=== PATIENT | female | born 1950 ===

== ENCOUNTER 2018-01-27 10:32 | Inpatient (IN) | payer OTHER ==
[2018-01-27 11:32] VITALS: BMI 23.6
[2018-01-27] MEDS ORDERED: oxyCODONE 10 mg ER Tab (oxyCONTIN) PO PRN ×2 (13:57→14:10)
[2018-01-27] MEDS ORDERED: Vitamins A & D Oint UD Foilpak TOP PRN (14:01)
[2018-01-27] MEDS: POLYETHYLENE GLYCOL 3350 17 GM/Dose PACKET PO SCH (16:41)
[2018-01-27] MEDS: Albuterol-Ipratrop 3 mg / 0.5 (3 ml) UD IH SCH ×3 (17:00→23:00)
[2018-01-27] MEDS: Oxycodone/Acetaminophen 5/325 mg Tab PO PRN (21:32)
[2018-01-27] MEDS ORDERED: ROSUVASTATIN CALCIUM PO SCH (22:00)
[2018-01-28] MEDS: Albuterol-Ipratrop 3 mg / 0.5 (3 ml) UD IH SCH ×6 (04:00→23:17)
[2018-01-28] MEDS: Levothyroxine 175 MCG TAB PO SCH (07:47)
[2018-01-28] MEDS: Metoprolol Succinate 50 mg XL Tab PO SCH (08:22)
[2018-01-28] MEDS ORDERED: PrednisoLONE 1% OPTH SUSP OD SCH (09:00)
[2018-01-28] MEDS ORDERED: Levothyroxine 175 MCG TAB PO SCH (09:00)
[2018-01-28] MEDS: Multivitamin With Minerals Tab PO SCH (09:42)
[2018-01-28] MEDS: Pantoprazole 40 mg EC Tab PO SCH (09:42)
[2018-01-28] MEDS: POLYETHYLENE GLYCOL 3350 17 GM/Dose PACKET PO SCH ×3 (09:42→18:25)
[2018-01-28] MEDS: Oxycodone/Acetaminophen 5/325 mg Tab PO PRN ×3 (10:52→21:54)
[2018-01-29] MEDS: Albuterol-Ipratrop 3 mg / 0.5 (3 ml) UD IH SCH ×6 (04:03→23:11)
[2018-01-29] MEDS: Levothyroxine 175 MCG TAB PO SCH (06:12)
--- NOTE | 2018-01-29 08:02 | CP.PCM.HP ---
History of Present Illness - History of Present Illness History of Present Illness: This is a 67 y/o female admitted for rehab after ORIF of left wrist fracture. Post op period was unremarkable except for pain on the surg site. Has a hx of hyperlipidemia HTN and SLE., ostoporosis Present on Admission - Present on Admission Any Indicators Present on Admission: No History of DVT/PE: No History of Uncontrolled Diabetes: No Urinary Catheter: No Decubitus Ulcer Present: No Review of Systems - Musculoskeletal Musculoskeletal: Arthralgias, Muscle Weakness, Stiffness Past Patient History - Past Medical History & Family History Past Medical History?: Yes - Past Social History Smoking Status: Never Smoked - CARDIAC Hx Cardiac Disorders: Yes Hx Hypertension: Yes - PULMONARY Hx Respiratory Disorders: Yes Hx Asthma: Yes - NEUROLOGICAL Hx Neurological Disorder: Yes Hx Migraine: Yes - HEENT Hx HEENT Problems: Yes Hx Cataracts: Yes (Bilateral IOL) - RENAL Hx Chronic Kidney Disease: No - ENDOCRINE/METABOLIC Hx Hypothyroidism: Yes - HEMATOLOGICAL/ONCOLOGICAL Hx Blood Disorders: Yes Hx Anemia: Yes Hx Blood Transfusions: No Other/Comment: Lupus - INTEGUMENTARY Hx Dermatological Problems: No - MUSCULOSKELETAL/RHEUMATOLOGICAL Hx Arthritis: Yes Hx Falls: No - GASTROINTESTINAL Hx Gastrointestinal Disorders: Yes Hx Gastroesophageal Reflux: Yes - GENITOURINARY/GYNECOLOGICAL Hx Genitourinary Disorders: No - PSYCHIATRIC Hx Psychophysiologic Disorder: Yes Hx Anxiety: Yes Hx Substance Use: No - SURGICAL HISTORY Hx Surgeries: Yes Hx Cataract Extraction: Yes (CAROLYN. IOL) Hx Cardiac Catheterization: Yes ("I HAVE BLOCKAGE") Hx Eye Surgery: Yes (LASIK) Hx Hysterectomy: Yes Hx Tonsillectomy: Yes Other/Comment: s/p orif of left distal radius - ANESTHESIA Hx Anesthesia: Yes Hx Anesthesia Reactions: No Hx Malignant Hyperthermia: No Meds Allergies/Adverse Reactions: Allergies Allergy/AdvReac Type Severity Reaction Status Date / Time Sulfa (Sulfonamide Allergy Intermediate RASH Verified 01/27/18 11:38 Antibiotics) Physical Exam - Head Exam Head Exam: NORMAL INSPECTION - Eye Exam Eye Exam: Normal appearance - ENT Exam ENT Exam: Mucous Membranes Moist - Respiratory Exam Respiratory Exam: Clear to Auscultation Bilateral - Cardiovascular Exam Cardiovascular Exam: REGULAR RHYTHM - Extremities Exam Additional comments: slight tenderness on the left wrist Results - Vital Signs Recent Vital Signs: Last Vital Signs Temp 97.5 F L 01/28/18 22:01 Pulse 78 01/28/18 22:01 Resp 20 01/28/18 22:01 BP 148/78 01/28/18 22:01 Pulse Ox 99 01/28/18 22:01 Assessment & Plan (1) Status post open reduction with internal fixation (ORIF) of fracture of ankle Status: Acute (2) Hypertension Status: Acute (3) Hyperlipidemia Status: Acute (4) SLE (systemic lupus erythematosus) Status: Acute - Assessment and Plan (Free Text) Plan: Cont meds Pain meds start PT pain meds
[2018-01-29] MEDS: POLYETHYLENE GLYCOL 3350 17 GM/Dose PACKET PO SCH ×3 (08:48→16:50)
[2018-01-29] MEDS: PrednisoLONE 1% OPTH SUSP OU SCH (08:49)
[2018-01-29] MEDS: Pantoprazole 40 mg EC Tab PO SCH (08:49)
[2018-01-29] MEDS: Metoprolol Succinate 50 mg XL Tab PO SCH (08:49)
[2018-01-29] MEDS: Multivitamin With Minerals Tab PO SCH (08:49)
[2018-01-29] MEDS: Oxycodone/Acetaminophen 5/325 mg Tab PO PRN ×2 (13:45→22:35)
[2018-01-30] MEDS: Albuterol-Ipratrop 3 mg / 0.5 (3 ml) UD IH SCH ×5 (04:06→19:07)
[2018-01-30] MEDS: Oxycodone/Acetaminophen 5/325 mg Tab PO PRN ×2 (05:08→21:58)
[2018-01-30] MEDS: Levothyroxine 175 MCG TAB PO SCH (05:40)
[2018-01-30] MEDS: POLYETHYLENE GLYCOL 3350 17 GM/Dose PACKET PO SCH ×3 (08:38→16:39)
[2018-01-30] MEDS: PrednisoLONE 1% OPTH SUSP OU SCH (08:38)
[2018-01-30] MEDS: Multivitamin With Minerals Tab PO SCH (08:38)
[2018-01-30] MEDS: Metoprolol Succinate 50 mg XL Tab PO SCH (08:38)
[2018-01-30] MEDS: Pantoprazole 40 mg EC Tab PO SCH (08:40)
--- NOTE | 2018-01-30 15:58 | CP.PCM.PN ---
<Emmanuel Maldonado - Last Filed: 01/30/18 15:56> Subjective - Date & Time of Evaluation Date of Evaluation: 01/30/18 Time of Evaluation: 09:00 - Subjective Subjective: 67 y/o F reports feeling well. Pt afebrile with no acute events overnight. Pt tolerating PO and tolerating physical therapy. Objective - Vital Signs/Intake and Output Vital Signs (last 24 hours): Temp Pulse Resp BP Pulse Ox 97.9 F 70 20 140/66 99 01/30/18 07:44 01/30/18 08:38 01/30/18 07:44 01/30/18 08:38 01/30/18 07:44 - Medications Medications: Current Medications Acetaminophen (Tylenol 325mg Tab) 650 mg PO Q6 PRN PRN Reason: Pain, Mild (1-3) Last Admin: 01/28/18 08:20 Dose: 650 mg Albuterol/Ipratropium (Duoneb 3 Mg/0.5 Mg (3 Ml) Ud) 3 ml IH RQ4 [facility] Last Admin: 01/30/18 15:23 Dose: Not Given Aspirin (Ecotrin) 81 mg PO DAILY [facility] Last Admin: 01/30/18 08:38 Dose: 81 mg Atorvastatin Calcium (Lipitor) 20 mg PO HS [facility] Last Admin: 01/29/18 21:44 Dose: 20 mg Levothyroxine Sodium (Synthroid) 175 mcg PO DAILY@0630 [facility] Last Admin: 01/30/18 05:40 Dose: 175 mcg Metoprolol Succinate (Toprol Xl) 50 mg PO DAILY [facility] Last Admin: 01/30/18 08:38 Dose: 50 mg Multivitamins/Minerals (Therapeutic-M Tab) 1 tab PO DAILY [facility] Last Admin: 01/30/18 08:38 Dose: 1 tab Pantoprazole Sodium (Protonix Ec Tab) 40 mg PO DAILY [facility] Last Admin: 01/30/18 08:40 Dose: 40 mg Polyethylene Glycol (Miralax) 17 gm PO TID [facility] Last Admin: 01/30/18 14:00 Dose: 17 gm Prednisolone Acetate (Pred Forte 1% Opht Susp) 1 drop OU DAILY [facility] Last Admin: 01/30/18 08:38 Dose: 1 drop Prednisone (Prednisone Tab) 5 mg PO DAILY [facility] Last Admin: 01/30/18 08:38 Dose: 5 mg Sennosides (Senokot Tab) 17.2 mg PO HS PRN PRN Reason: Constipation Vitamin A (Vitamin A & D Oint Ud Foilpak) 1 ea TOP Q4 PRN PRN Reason: Dry skin - Constitutional Appears: No Acute Distress - Head Exam Head Exam: ATRAUMATIC, NORMAL INSPECTION - Eye Exam Eye Exam: EOMI - Neck Exam Neck Exam: Full ROM - Respiratory Exam Respiratory Exam: NORMAL BREATHING PATTERN. absent: Rhonchi, Wheezes - Cardiovascular Exam Cardiovascular Exam: +S1, +S2 - GI/Abdominal Exam GI & Abdominal Exam: Soft. absent: Distended, Guarding, Tenderness - Neurological Exam Neurological Exam: Alert, Awake Assessment and Plan - Assessment and Plan (Free Text) Assessment: 67 y/o F with a past medical history of hypertension and asthma admitted to TCU for rehabilitation S/P Left distak radius ORIF. --Stable, recovering well --Continue with management as ordered --Continue with physical therapy. <Jos Msos - Last Filed: 02/05/18 06:12> Objective - Vital Signs/Intake and Output Vital Signs (last 24 hours): Temp Pulse Resp BP Pulse Ox 97.5 F L 67 20 158/76 H 100 02/04/18 19:52 02/04/18 19:52 02/04/18 19:52 02/04/18 19:52 02/04/18 19:52 - Medications Medications: Current Medications Acetaminophen (Tylenol 325mg Tab) 650 mg PO Q6 PRN PRN Reason: Pain, Mild (1-3) Last Admin: 02/03/18 15:29 Dose: 650 mg Aspirin (Ecotrin) 81 mg PO DAILY [facility] Last Admin: 02/04/18 09:17 Dose: 81 mg Atorvastatin Calcium (Lipitor) 20 mg PO HS [facility] Last Admin: 02/04/18 21:34 Dose: 20 mg Desoximetasone (Topicort 0.25%) 1 ea TOP BID PRN PRN Reason: Itching / Pruritus Last Admin: 02/03/18 13:49 Dose: 1 u Diphenhydramine HCl (Benadryl) 25 mg PO BID PRN PRN Reason: Itching / Pruritus Last Admin: 02/04/18 18:39 Dose: 25 mg Levothyroxine Sodium (Synthroid) 175 mcg PO DAILY@0630 [facility] Last Admin: 02/04/18 06:42 Dose: 175 mcg Metoprolol Succinate (Toprol Xl) 50 mg PO DAILY [facility] Last Admin: 02/04/18 09:16 Dose: 50 mg Multivitamins/Minerals (Therapeutic-M Tab) 1 tab PO DAILY [facility] Last Admin: 02/04/18 09:18 Dose: 1 tab Ondansetron HCl (Zofran Odt) 4 mg PO Q8H PRN PRN Reason: Nausea/Vomiting Last Admin: 02/04/18 17:23 Dose: 4 mg Oxycodone HCl (Oxycontin Extended Release Tab) 10 mg PO Q12 [facility] Last Admin: 02/04/18 20:31 Dose: 10 mg Oxycodone/Acetaminophen (Percocet 5/325 Mg Tab) 1 tab PO Q4 PRN PRN Reason: Pain, moderate (4-7) Stop: 02/07/18 03:05 Last Admin: 02/05/18 03:47 Dose: 1 tab Oxycodone/Acetaminophen (Percocet 5/325 Mg Tab) 2 tab PO HS [facility] Stop: 02/07/18 11:31 Last Admin: 02/04/18 21:34 Dose: 2 tab Pantoprazole Sodium (Protonix Ec Tab) 40 mg PO DAILY [facility] Last Admin: 02/04/18 09:15 Dose: 40 mg Polyethylene Glycol (Miralax) 17 gm PO TID [facility] Last Admin: 02/04/18 16:08 Dose: 17 gm Prednisolone Acetate (Pred Forte 1% Opht Susp) 1 drop OU DAILY [facility] Last Admin: 02/04/18 09:15 Dose: 1 drop Prednisone (Prednisone Tab) 5 mg PO DAILY [facility] Last Admin: 02/04/18 09:18 Dose: 5 mg Sennosides (Senokot Tab) 17.2 mg PO HS PRN PRN Reason: Constipation Vitamin A (Vitamin A & D Oint Ud Foilpak) 1 ea TOP Q4 PRN PRN Reason: Dry skin Last Admin: 01/31/18 08:17 Dose: 1 ea Assessment and Plan (1) Status post open reduction with internal fixation (ORIF) of fracture of ankle Status: Acute (2) Hypertension Status: Acute (3) Hyperlipidemia Status: Acute (4) SLE (systemic lupus erythematosus) Status: Acute - Assessment and Plan (Free Text) Plan: I was present during evaluation and discussed with Dr Maldonado re plans of care and mgt. Jos Moss M.D.
[2018-01-31] MEDS: Albuterol-Ipratrop 3 mg / 0.5 (3 ml) UD IH SCH ×6 (05:26→19:41)
[2018-01-31] MEDS: Levothyroxine 175 MCG TAB PO SCH (06:38)
[2018-01-31] MEDS: Multivitamin With Minerals Tab PO SCH (08:15)
[2018-01-31] MEDS: Metoprolol Succinate 50 mg XL Tab PO SCH (08:16)
[2018-01-31] MEDS: PrednisoLONE 1% OPTH SUSP OU SCH (08:17)
[2018-01-31] MEDS: POLYETHYLENE GLYCOL 3350 17 GM/Dose PACKET PO SCH ×3 (08:18→17:18)
[2018-01-31] MEDS: oxyCODONE 10 mg ER Tab (oxyCONTIN) PO SCH ×2 (08:23→21:46)
[2018-01-31] MEDS: Pantoprazole 40 mg EC Tab PO SCH (08:26)
[2018-01-31 10:24] VITALS: RESP 20
[2018-02-01] MEDS: Albuterol-Ipratrop 3 mg / 0.5 (3 ml) UD IH SCH ×7 (03:50→23:24)
[2018-02-01] MEDS: Levothyroxine 175 MCG TAB PO SCH (06:53)
[2018-02-01] MEDS: oxyCODONE 10 mg ER Tab (oxyCONTIN) PO SCH ×2 (09:00→21:42)
[2018-02-01] MEDS: POLYETHYLENE GLYCOL 3350 17 GM/Dose PACKET PO SCH ×3 (09:03→16:26)
[2018-02-01] MEDS: PrednisoLONE 1% OPTH SUSP OU SCH (09:03)
[2018-02-01] MEDS: Multivitamin With Minerals Tab PO SCH (09:04)
[2018-02-01] MEDS: Metoprolol Succinate 50 mg XL Tab PO SCH (09:04)
[2018-02-01] MEDS: Pantoprazole 40 mg EC Tab PO SCH (09:07)
[2018-02-01] MEDS: Oxycodone/Acetaminophen 5/325 mg Tab PO PRN ×3 (12:26→23:41)
[2018-02-01] MEDS: Desoximetasone 0.25% Cream(15 gm) TOP PRN (21:41)
[2018-02-02] MEDS: Albuterol-Ipratrop 3 mg / 0.5 (3 ml) UD IH SCH ×6 (04:32→23:24)
[2018-02-02] MEDS: Levothyroxine 175 MCG TAB PO SCH (06:39)
[2018-02-02] MEDS: Oxycodone/Acetaminophen 5/325 mg Tab PO PRN (07:45)
[2018-02-02] MEDS: Metoprolol Succinate 50 mg XL Tab PO SCH (08:16)
[2018-02-02] MEDS: Multivitamin With Minerals Tab PO SCH (08:16)
[2018-02-02] MEDS: POLYETHYLENE GLYCOL 3350 17 GM/Dose PACKET PO SCH ×3 (08:16→16:45)
[2018-02-02] MEDS: PrednisoLONE 1% OPTH SUSP OU SCH (08:17)
[2018-02-02] MEDS: oxyCODONE 10 mg ER Tab (oxyCONTIN) PO SCH ×2 (08:19→21:35)
[2018-02-02] MEDS: Pantoprazole 40 mg EC Tab PO SCH (08:19)
[2018-02-02] MEDS: Desoximetasone 0.25% Cream(15 gm) TOP PRN (16:45)
[2018-02-03] MEDS: Albuterol-Ipratrop 3 mg / 0.5 (3 ml) UD IH SCH ×4 (04:54→15:10)
[2018-02-03] MEDS: Levothyroxine 175 MCG TAB PO SCH (06:28)
[2018-02-03] MEDS: oxyCODONE 10 mg ER Tab (oxyCONTIN) PO SCH ×2 (08:55→22:03)
[2018-02-03] MEDS: PrednisoLONE 1% OPTH SUSP OU SCH (08:56)
[2018-02-03] MEDS: POLYETHYLENE GLYCOL 3350 17 GM/Dose PACKET PO SCH ×3 (08:56→17:15)
[2018-02-03] MEDS: Multivitamin With Minerals Tab PO SCH (08:56)
[2018-02-03] MEDS: Metoprolol Succinate 50 mg XL Tab PO SCH (08:57)
[2018-02-03] MEDS: Pantoprazole 40 mg EC Tab PO SCH (09:00)
[2018-02-03] MEDS: Oxycodone/Acetaminophen 5/325 mg Tab PO PRN ×2 (13:48→18:57)
[2018-02-03] MEDS: Desoximetasone 0.25% Cream(15 gm) TOP PRN (13:49)
[2018-02-03] MEDS ORDERED: Oxycodone/Acetaminophen 5/325 mg Tab PO SCH (22:00)
[2018-02-04] MEDS: Oxycodone/Acetaminophen 5/325 mg Tab PO PRN ×2 (03:12→16:08)
[2018-02-04] MEDS: Levothyroxine 175 MCG TAB PO SCH (06:42)
[2018-02-04 08:35] VITALS: O2SAT 100
[2018-02-04] MEDS: oxyCODONE 10 mg ER Tab (oxyCONTIN) PO SCH ×2 (09:13→20:31)
[2018-02-04] MEDS: PrednisoLONE 1% OPTH SUSP OU SCH (09:15)
[2018-02-04] MEDS: Pantoprazole 40 mg EC Tab PO SCH (09:15)
[2018-02-04] MEDS: POLYETHYLENE GLYCOL 3350 17 GM/Dose PACKET PO SCH ×3 (09:16→16:08)
[2018-02-04] MEDS: Metoprolol Succinate 50 mg XL Tab PO SCH (09:16)
[2018-02-04] MEDS: Multivitamin With Minerals Tab PO SCH (09:18)
[2018-02-04] MEDS ORDERED: Oxycodone/Acetaminophen 5/325 mg Tab PO SCH (11:30)
[2018-02-05] MEDS: Oxycodone/Acetaminophen 5/325 mg Tab PO PRN ×3 (03:47→13:28)
[2018-02-05] MEDS: Levothyroxine 175 MCG TAB PO SCH (06:13)
--- NOTE | 2018-02-05 06:13 | CP.PCM.PN ---
Subjective - Date & Time of Evaluation Date of Evaluation: 01/29/18 Time of Evaluation: 10:00 - Subjective Subjective: Patient continues to have pain on the op site Has poor sleep Doign well with PT. Objective - Vital Signs/Intake and Output Vital Signs (last 24 hours): Temp Pulse Resp BP Pulse Ox 97.5 F L 67 20 158/76 H 100 02/04/18 19:52 02/04/18 19:52 02/04/18 19:52 02/04/18 19:52 02/04/18 19:52 - Medications Medications: Current Medications Acetaminophen (Tylenol 325mg Tab) 650 mg PO Q6 PRN PRN Reason: Pain, Mild (1-3) Last Admin: 02/03/18 15:29 Dose: 650 mg Aspirin (Ecotrin) 81 mg PO DAILY [facility] Last Admin: 02/04/18 09:17 Dose: 81 mg Atorvastatin Calcium (Lipitor) 20 mg PO HS [facility] Last Admin: 02/04/18 21:34 Dose: 20 mg Desoximetasone (Topicort 0.25%) 1 ea TOP BID PRN PRN Reason: Itching / Pruritus Last Admin: 02/03/18 13:49 Dose: 1 u Diphenhydramine HCl (Benadryl) 25 mg PO BID PRN PRN Reason: Itching / Pruritus Last Admin: 02/04/18 18:39 Dose: 25 mg Levothyroxine Sodium (Synthroid) 175 mcg PO DAILY@0630 [facility] Last Admin: 02/04/18 06:42 Dose: 175 mcg Metoprolol Succinate (Toprol Xl) 50 mg PO DAILY [facility] Last Admin: 02/04/18 09:16 Dose: 50 mg Multivitamins/Minerals (Therapeutic-M Tab) 1 tab PO DAILY [facility] Last Admin: 02/04/18 09:18 Dose: 1 tab Ondansetron HCl (Zofran Odt) 4 mg PO Q8H PRN PRN Reason: Nausea/Vomiting Last Admin: 02/04/18 17:23 Dose: 4 mg Oxycodone HCl (Oxycontin Extended Release Tab) 10 mg PO Q12 [facility] Last Admin: 02/04/18 20:31 Dose: 10 mg Oxycodone/Acetaminophen (Percocet 5/325 Mg Tab) 1 tab PO Q4 PRN PRN Reason: Pain, moderate (4-7) Stop: 02/07/18 03:05 Last Admin: 02/05/18 03:47 Dose: 1 tab Oxycodone/Acetaminophen (Percocet 5/325 Mg Tab) 2 tab PO HS [facility] Stop: 02/07/18 11:31 Last Admin: 02/04/18 21:34 Dose: 2 tab Pantoprazole Sodium (Protonix Ec Tab) 40 mg PO DAILY [facility] Last Admin: 02/04/18 09:15 Dose: 40 mg Polyethylene Glycol (Miralax) 17 gm PO TID [facility] Last Admin: 02/04/18 16:08 Dose: 17 gm Prednisolone Acetate (Pred Forte 1% Opht Susp) 1 drop OU DAILY [facility] Last Admin: 02/04/18 09:15 Dose: 1 drop Prednisone (Prednisone Tab) 5 mg PO DAILY [facility] Last Admin: 02/04/18 09:18 Dose: 5 mg Sennosides (Senokot Tab) 17.2 mg PO HS PRN PRN Reason: Constipation Vitamin A (Vitamin A & D Oint Ud Foilpak) 1 ea TOP Q4 PRN PRN Reason: Dry skin Last Admin: 01/31/18 08:17 Dose: 1 ea - Head Exam Head Exam: NORMAL INSPECTION - Eye Exam Eye Exam: Normal appearance - GI/Abdominal Exam GI & Abdominal Exam: Normal Bowel Sounds - Neurological Exam Neurological Exam: Awake, Oriented x3 Assessment and Plan (1) Status post open reduction with internal fixation (ORIF) of fracture of ankle Status: Acute (2) Hypertension Status: Acute (3) Hyperlipidemia Status: Acute (4) SLE (systemic lupus erythematosus) Status: Acute - Assessment and Plan (Free Text) Plan: Cont meds Cont tx Cont PT
--- NOTE | 2018-02-05 06:14 | CP.PCM.PN ---
Subjective - Date & Time of Evaluation Date of Evaluation: 01/31/18 Time of Evaluation: 11:00 - Subjective Subjective: Patient is doing well with PT Has minimal pain Has no constipation. Objective - Vital Signs/Intake and Output Vital Signs (last 24 hours): Temp Pulse Resp BP Pulse Ox 97.5 F L 67 20 158/76 H 100 02/04/18 19:52 02/04/18 19:52 02/04/18 19:52 02/04/18 19:52 02/04/18 19:52 - Medications Medications: Current Medications Acetaminophen (Tylenol 325mg Tab) 650 mg PO Q6 PRN PRN Reason: Pain, Mild (1-3) Last Admin: 02/03/18 15:29 Dose: 650 mg Aspirin (Ecotrin) 81 mg PO DAILY [facility] Last Admin: 02/04/18 09:17 Dose: 81 mg Atorvastatin Calcium (Lipitor) 20 mg PO HS [facility] Last Admin: 02/04/18 21:34 Dose: 20 mg Desoximetasone (Topicort 0.25%) 1 ea TOP BID PRN PRN Reason: Itching / Pruritus Last Admin: 02/03/18 13:49 Dose: 1 u Diphenhydramine HCl (Benadryl) 25 mg PO BID PRN PRN Reason: Itching / Pruritus Last Admin: 02/04/18 18:39 Dose: 25 mg Levothyroxine Sodium (Synthroid) 175 mcg PO DAILY@0630 [facility] Last Admin: 02/04/18 06:42 Dose: 175 mcg Metoprolol Succinate (Toprol Xl) 50 mg PO DAILY [facility] Last Admin: 02/04/18 09:16 Dose: 50 mg Multivitamins/Minerals (Therapeutic-M Tab) 1 tab PO DAILY [facility] Last Admin: 02/04/18 09:18 Dose: 1 tab Ondansetron HCl (Zofran Odt) 4 mg PO Q8H PRN PRN Reason: Nausea/Vomiting Last Admin: 02/04/18 17:23 Dose: 4 mg Oxycodone HCl (Oxycontin Extended Release Tab) 10 mg PO Q12 [facility] Last Admin: 02/04/18 20:31 Dose: 10 mg Oxycodone/Acetaminophen (Percocet 5/325 Mg Tab) 1 tab PO Q4 PRN PRN Reason: Pain, moderate (4-7) Stop: 02/07/18 03:05 Last Admin: 02/05/18 03:47 Dose: 1 tab Oxycodone/Acetaminophen (Percocet 5/325 Mg Tab) 2 tab PO HS [facility] Stop: 02/07/18 11:31 Last Admin: 02/04/18 21:34 Dose: 2 tab Pantoprazole Sodium (Protonix Ec Tab) 40 mg PO DAILY [facility] Last Admin: 02/04/18 09:15 Dose: 40 mg Polyethylene Glycol (Miralax) 17 gm PO TID [facility] Last Admin: 02/04/18 16:08 Dose: 17 gm Prednisolone Acetate (Pred Forte 1% Opht Susp) 1 drop OU DAILY [facility] Last Admin: 02/04/18 09:15 Dose: 1 drop Prednisone (Prednisone Tab) 5 mg PO DAILY [facility] Last Admin: 02/04/18 09:18 Dose: 5 mg Sennosides (Senokot Tab) 17.2 mg PO HS PRN PRN Reason: Constipation Vitamin A (Vitamin A & D Oint Ud Foilpak) 1 ea TOP Q4 PRN PRN Reason: Dry skin Last Admin: 01/31/18 08:17 Dose: 1 ea Assessment and Plan (1) Status post open reduction with internal fixation (ORIF) of fracture of ankle Status: Acute (2) Hypertension Status: Acute (3) Hyperlipidemia Status: Acute (4) SLE (systemic lupus erythematosus) Status: Acute
--- NOTE | 2018-02-05 06:15 | CP.PCM.PN ---
Subjective - Date & Time of Evaluation Date of Evaluation: 02/01/18 Time of Evaluation: 10:00 - Subjective Subjective: Patient is doing well with PT Has minimal pain On pain meds. Objective - Vital Signs/Intake and Output Vital Signs (last 24 hours): Temp Pulse Resp BP Pulse Ox 97.5 F L 67 20 158/76 H 100 02/04/18 19:52 02/04/18 19:52 02/04/18 19:52 02/04/18 19:52 02/04/18 19:52 - Medications Medications: Current Medications Acetaminophen (Tylenol 325mg Tab) 650 mg PO Q6 PRN PRN Reason: Pain, Mild (1-3) Last Admin: 02/03/18 15:29 Dose: 650 mg Aspirin (Ecotrin) 81 mg PO DAILY [facility] Last Admin: 02/04/18 09:17 Dose: 81 mg Atorvastatin Calcium (Lipitor) 20 mg PO HS [facility] Last Admin: 02/04/18 21:34 Dose: 20 mg Desoximetasone (Topicort 0.25%) 1 ea TOP BID PRN PRN Reason: Itching / Pruritus Last Admin: 02/03/18 13:49 Dose: 1 u Diphenhydramine HCl (Benadryl) 25 mg PO BID PRN PRN Reason: Itching / Pruritus Last Admin: 02/04/18 18:39 Dose: 25 mg Levothyroxine Sodium (Synthroid) 175 mcg PO DAILY@0630 [facility] Last Admin: 02/04/18 06:42 Dose: 175 mcg Metoprolol Succinate (Toprol Xl) 50 mg PO DAILY [facility] Last Admin: 02/04/18 09:16 Dose: 50 mg Multivitamins/Minerals (Therapeutic-M Tab) 1 tab PO DAILY [facility] Last Admin: 02/04/18 09:18 Dose: 1 tab Ondansetron HCl (Zofran Odt) 4 mg PO Q8H PRN PRN Reason: Nausea/Vomiting Last Admin: 02/04/18 17:23 Dose: 4 mg Oxycodone HCl (Oxycontin Extended Release Tab) 10 mg PO Q12 [facility] Last Admin: 02/04/18 20:31 Dose: 10 mg Oxycodone/Acetaminophen (Percocet 5/325 Mg Tab) 1 tab PO Q4 PRN PRN Reason: Pain, moderate (4-7) Stop: 02/07/18 03:05 Last Admin: 02/05/18 03:47 Dose: 1 tab Oxycodone/Acetaminophen (Percocet 5/325 Mg Tab) 2 tab PO HS [facility] Stop: 02/07/18 11:31 Last Admin: 02/04/18 21:34 Dose: 2 tab Pantoprazole Sodium (Protonix Ec Tab) 40 mg PO DAILY [facility] Last Admin: 02/04/18 09:15 Dose: 40 mg Polyethylene Glycol (Miralax) 17 gm PO TID [facility] Last Admin: 02/04/18 16:08 Dose: 17 gm Prednisolone Acetate (Pred Forte 1% Opht Susp) 1 drop OU DAILY [facility] Last Admin: 02/04/18 09:15 Dose: 1 drop Prednisone (Prednisone Tab) 5 mg PO DAILY [facility] Last Admin: 02/04/18 09:18 Dose: 5 mg Sennosides (Senokot Tab) 17.2 mg PO HS PRN PRN Reason: Constipation Vitamin A (Vitamin A & D Oint Ud Foilpak) 1 ea TOP Q4 PRN PRN Reason: Dry skin Last Admin: 01/31/18 08:17 Dose: 1 ea Assessment and Plan (1) Status post open reduction with internal fixation (ORIF) of fracture of ankle Status: Acute (2) Hypertension Status: Acute (3) Hyperlipidemia Status: Acute (4) SLE (systemic lupus erythematosus) Status: Acute
--- NOTE | 2018-02-05 06:15 | CP.PCM.PN ---
Subjective - Date & Time of Evaluation Date of Evaluation: 02/02/18 Time of Evaluation: 11:00 - Subjective Subjective: Patient remains stable Has no chest pain or SOB Objective - Vital Signs/Intake and Output Vital Signs (last 24 hours): Temp Pulse Resp BP Pulse Ox 97.5 F L 67 20 158/76 H 100 02/04/18 19:52 02/04/18 19:52 02/04/18 19:52 02/04/18 19:52 02/04/18 19:52 - Medications Medications: Current Medications Acetaminophen (Tylenol 325mg Tab) 650 mg PO Q6 PRN PRN Reason: Pain, Mild (1-3) Last Admin: 02/03/18 15:29 Dose: 650 mg Aspirin (Ecotrin) 81 mg PO DAILY [facility] Last Admin: 02/04/18 09:17 Dose: 81 mg Atorvastatin Calcium (Lipitor) 20 mg PO HS [facility] Last Admin: 02/04/18 21:34 Dose: 20 mg Desoximetasone (Topicort 0.25%) 1 ea TOP BID PRN PRN Reason: Itching / Pruritus Last Admin: 02/03/18 13:49 Dose: 1 u Diphenhydramine HCl (Benadryl) 25 mg PO BID PRN PRN Reason: Itching / Pruritus Last Admin: 02/04/18 18:39 Dose: 25 mg Levothyroxine Sodium (Synthroid) 175 mcg PO DAILY@0630 [facility] Last Admin: 02/04/18 06:42 Dose: 175 mcg Metoprolol Succinate (Toprol Xl) 50 mg PO DAILY [facility] Last Admin: 02/04/18 09:16 Dose: 50 mg Multivitamins/Minerals (Therapeutic-M Tab) 1 tab PO DAILY [facility] Last Admin: 02/04/18 09:18 Dose: 1 tab Ondansetron HCl (Zofran Odt) 4 mg PO Q8H PRN PRN Reason: Nausea/Vomiting Last Admin: 02/04/18 17:23 Dose: 4 mg Oxycodone HCl (Oxycontin Extended Release Tab) 10 mg PO Q12 [facility] Last Admin: 02/04/18 20:31 Dose: 10 mg Oxycodone/Acetaminophen (Percocet 5/325 Mg Tab) 1 tab PO Q4 PRN PRN Reason: Pain, moderate (4-7) Stop: 02/07/18 03:05 Last Admin: 02/05/18 03:47 Dose: 1 tab Oxycodone/Acetaminophen (Percocet 5/325 Mg Tab) 2 tab PO HS [facility] Stop: 02/07/18 11:31 Last Admin: 02/04/18 21:34 Dose: 2 tab Pantoprazole Sodium (Protonix Ec Tab) 40 mg PO DAILY [facility] Last Admin: 02/04/18 09:15 Dose: 40 mg Polyethylene Glycol (Miralax) 17 gm PO TID [facility] Last Admin: 02/04/18 16:08 Dose: 17 gm Prednisolone Acetate (Pred Forte 1% Opht Susp) 1 drop OU DAILY [facility] Last Admin: 02/04/18 09:15 Dose: 1 drop Prednisone (Prednisone Tab) 5 mg PO DAILY [facility] Last Admin: 02/04/18 09:18 Dose: 5 mg Sennosides (Senokot Tab) 17.2 mg PO HS PRN PRN Reason: Constipation Vitamin A (Vitamin A & D Oint Ud Foilpak) 1 ea TOP Q4 PRN PRN Reason: Dry skin Last Admin: 01/31/18 08:17 Dose: 1 ea Assessment and Plan (1) Status post open reduction with internal fixation (ORIF) of fracture of ankle Status: Acute (2) Hypertension Status: Acute (3) Hyperlipidemia Status: Acute (4) SLE (systemic lupus erythematosus) Status: Acute
--- NOTE | 2018-02-05 06:16 | CP.PCM.PN ---
Subjective - Date & Time of Evaluation Date of Evaluation: 02/03/18 Time of Evaluation: 11:00 - Subjective Subjective: Patient has minimal pain on the op site Doing welll with PT BP has been stable Sleeps better. Objective - Vital Signs/Intake and Output Vital Signs (last 24 hours): Temp Pulse Resp BP Pulse Ox 97.5 F L 67 20 158/76 H 100 02/04/18 19:52 02/04/18 19:52 02/04/18 19:52 02/04/18 19:52 02/04/18 19:52 - Medications Medications: Current Medications Acetaminophen (Tylenol 325mg Tab) 650 mg PO Q6 PRN PRN Reason: Pain, Mild (1-3) Last Admin: 02/03/18 15:29 Dose: 650 mg Aspirin (Ecotrin) 81 mg PO DAILY [facility] Last Admin: 02/04/18 09:17 Dose: 81 mg Atorvastatin Calcium (Lipitor) 20 mg PO HS [facility] Last Admin: 02/04/18 21:34 Dose: 20 mg Desoximetasone (Topicort 0.25%) 1 ea TOP BID PRN PRN Reason: Itching / Pruritus Last Admin: 02/03/18 13:49 Dose: 1 u Diphenhydramine HCl (Benadryl) 25 mg PO BID PRN PRN Reason: Itching / Pruritus Last Admin: 02/04/18 18:39 Dose: 25 mg Levothyroxine Sodium (Synthroid) 175 mcg PO DAILY@0630 [facility] Last Admin: 02/05/18 06:13 Dose: 175 mcg Metoprolol Succinate (Toprol Xl) 50 mg PO DAILY [facility] Last Admin: 02/04/18 09:16 Dose: 50 mg Multivitamins/Minerals (Therapeutic-M Tab) 1 tab PO DAILY [facility] Last Admin: 02/04/18 09:18 Dose: 1 tab Ondansetron HCl (Zofran Odt) 4 mg PO Q8H PRN PRN Reason: Nausea/Vomiting Last Admin: 02/04/18 17:23 Dose: 4 mg Oxycodone HCl (Oxycontin Extended Release Tab) 10 mg PO Q12 [facility] Last Admin: 02/04/18 20:31 Dose: 10 mg Oxycodone/Acetaminophen (Percocet 5/325 Mg Tab) 1 tab PO Q4 PRN PRN Reason: Pain, moderate (4-7) Stop: 02/07/18 03:05 Last Admin: 02/05/18 03:47 Dose: 1 tab Oxycodone/Acetaminophen (Percocet 5/325 Mg Tab) 2 tab PO HS [facility] Stop: 02/07/18 11:31 Last Admin: 02/04/18 21:34 Dose: 2 tab Pantoprazole Sodium (Protonix Ec Tab) 40 mg PO DAILY [facility] Last Admin: 02/04/18 09:15 Dose: 40 mg Polyethylene Glycol (Miralax) 17 gm PO TID [facility] Last Admin: 02/04/18 16:08 Dose: 17 gm Prednisolone Acetate (Pred Forte 1% Opht Susp) 1 drop OU DAILY [facility] Last Admin: 02/04/18 09:15 Dose: 1 drop Prednisone (Prednisone Tab) 5 mg PO DAILY [facility] Last Admin: 02/04/18 09:18 Dose: 5 mg Sennosides (Senokot Tab) 17.2 mg PO HS PRN PRN Reason: Constipation Vitamin A (Vitamin A & D Oint Ud Foilpak) 1 ea TOP Q4 PRN PRN Reason: Dry skin Last Admin: 01/31/18 08:17 Dose: 1 ea Assessment and Plan (1) Status post open reduction with internal fixation (ORIF) of fracture of ankle Status: Acute (2) Hypertension Status: Acute (3) Hyperlipidemia Status: Acute (4) SLE (systemic lupus erythematosus) Status: Acute
[2018-02-05 08:05] VITALS: PULSE 72; TEMP 98.2
[2018-02-05] MEDS: oxyCODONE 10 mg ER Tab (oxyCONTIN) PO SCH (08:28)
[2018-02-05] MEDS: PrednisoLONE 1% OPTH SUSP OU SCH (08:28)
[2018-02-05] MEDS: Metoprolol Succinate 50 mg XL Tab PO SCH (08:28)
[2018-02-05] MEDS: POLYETHYLENE GLYCOL 3350 17 GM/Dose PACKET PO SCH ×2 (08:28→12:43)
[2018-02-05] MEDS: Multivitamin With Minerals Tab PO SCH (08:29)
[2018-02-05 08:31] VITALS: BP 146/79
[2018-02-05] MEDS: Pantoprazole 40 mg EC Tab PO SCH (08:31)
== END 2018-02-05 14:15 | disposition home or self-care (01) | DRG 561 ==
LOC: H.TCU 12:35
PROVIDERS: ADMIT Family Medicine; ATTEND Family Medicine
PROC: F07Z9FZ Gait Training/Functional Ambulation Treatment using Assistive, Adaptive, Supportive or Protective Equipment (ICD-10-PCS; principal; 2018-01-27)
PROC: F08Z4FZ Home Management Treatment using Assistive, Adaptive, Supportive or Protective Equipment (ICD-10-PCS; 2018-01-27)
PROC: F07K6FZ Therapeutic Exercise Treatment of Musculoskeletal System - Upper Back / Upper Extremity using Assistive, Adaptive, Supportive or Protective Equipment (ICD-10-PCS; 2018-01-27)
PROC: F08Z2FZ Grooming/Personal Hygiene Treatment using Assistive, Adaptive, Supportive or Protective Equipment (ICD-10-PCS; 2018-01-28)
DX: S52.592D Other fractures of lower end of left radius, subsequent encounter for closed fracture with routine healing (principal); Z98.890 Other specified postprocedural states; G89.18 Other acute postprocedural pain; M32.9 Systemic lupus erythematosus, unspecified; E03.9 Hypothyroidism, unspecified; I10 Essential (primary) hypertension; E78.5 Hyperlipidemia, unspecified; M19.90 Unspecified osteoarthritis, unspecified site; K21.9 Gastro-esophageal reflux disease without esophagitis; J45.909 Unspecified asthma, uncomplicated; M81.0 Age-related osteoporosis without current pathological fracture; X58.XXXD Exposure to other specified factors, subsequent encounter; Z88.2 Allergy status to sulfonamides; Z90.710 Acquired absence of both cervix and uterus

== ENCOUNTER 2018-07-18 12:25 | Inpatient (IN) | payer MEDICARE, OTHER ==
[2018-07-18 19:51] VITALS: BMI 22.4
[2018-07-18] MEDS ORDERED: Lactulose 10 gm/15 ml Syrup PO PRN (21:28)
[2018-07-18] MEDS ORDERED: guaiFENesin 200 mg/10 ml Syrup UD PO PRN (22:05)
[2018-07-19] MEDS ORDERED: guaiFENesin 200 mg/10 ml Syrup UD PO SCH
[2018-07-19] MEDS: Levothyroxine 50 MCG TAB PO SCH (06:49)
[2018-07-19] MEDS: Pantoprazole 40 mg EC Tab PO SCH (06:51)
[2018-07-19] MEDS: Insulin Lispro (humaLOG) 100 Units/ml Inj SC SCH ×4 (07:50→21:18)
[2018-07-19] MEDS: Multivitamin With Minerals Tab PO SCH (08:45)
[2018-07-19] MEDS: Ranolazine 500 mg Extended Release Tablets PO SCH ×2 (08:45→19:44)
[2018-07-19] MEDS: Aspirin 325 mg EC Tablets PO SCH (08:46)
[2018-07-19] MEDS ORDERED: Patient's Own Med (Raloxifene [Evista] 60 MG) PO SCH (09:00)
[2018-07-19] MEDS ORDERED: Pantoprazole 40 mg EC Tab PO SCH (09:00)
[2018-07-19] MEDS ORDERED: PREDNISONE 15 MG PO SCH (09:00)
[2018-07-19] MEDS ORDERED: Bisacodyl 5mg EC Tab PO ONE (10:04)
[2018-07-19] MEDS ORDERED: Albuterol-Ipratrop 3 mg / 0.5 (3 ml) UD INH PRN (18:51)
[2018-07-19] MEDS ORDERED: Oxycodone/Acetaminophen 5/325 mg Tab PO PRN ×2 (19:28→19:32)
[2018-07-19] MEDS ORDERED: Mineral Oil Enema 135 ml PR ONE (19:33)
--- NOTE | 2018-07-19 20:19 | CP.PCM.CON ---
History of Present Illness - History of Present Illness History of Present Illness: 68 year old female admitted to acute rehab with diagnosis of CVA with PMH, of pericardial effusion, status post thoracotomy, CAD, HTN, hypercholestemia, fibromyalgia Review of Systems - Constitutional Constitutional: Weakness - Musculoskeletal Musculoskeletal: Muscle Weakness Past Patient History - Past Medical History & Family History Past Medical History?: Yes - Past Social History Smoking Status: Never Smoked - CARDIAC Hx Hypercholesterolemia: Yes - PULMONARY Hx Asthma: Yes Other/Comment: Pericardial effusion and pleural effusion - NEUROLOGICAL HX Cerebrovascular Accident: Yes - HEENT Hx HEENT Problems: Yes Hx Cataracts: Yes (Bilateral IOL) Other/Comment: Left eye sx. 2016 Macular hole full thickness and branch retinal vein occlusion - RENAL Hx Chronic Kidney Disease: No - ENDOCRINE/METABOLIC Hx Hypothyroidism: Yes - HEMATOLOGICAL/ONCOLOGICAL Hx Blood Disorders: No Hx AIDS: No Hx Human Immunodeficiency Virus (HIV): No - INTEGUMENTARY Hx Dermatological Problems: No - MUSCULOSKELETAL/RHEUMATOLOGICAL Hx Arthritis: Yes - GASTROINTESTINAL Hx Gastrointestinal Disorders: Yes Hx Gastroesophageal Reflux: Yes - GENITOURINARY/GYNECOLOGICAL Hx Genitourinary Disorders: No - PSYCHIATRIC Hx Psychophysiologic Disorder: No Hx Substance Use: No - SURGICAL HISTORY Hx Surgeries: Yes Hx Tonsillectomy: Yes Other/Comment: left thoracotomy and left pericardial window. 07/09/18 - ANESTHESIA Hx Anesthesia: Yes Hx Anesthesia Reactions: No Hx Malignant Hyperthermia: No Meds Allergies/Adverse Reactions: Allergies Allergy/AdvReac Type Severity Reaction Status Date / Time Sulfa (Sulfonamide Allergy Intermediate RASH Verified 07/18/18 20:23 Antibiotics) methotrexate Allergy SHORTNESS Verified 07/18/18 20:23 OF BREATH - Medications Medications: Current Medications Acetaminophen (Tylenol 325mg Tab) 650 mg PO Q6 PRN PRN Reason: Pain, Mild (1-3) Albuterol/Ipratropium (Duoneb 3 Mg/0.5 Mg (3 Ml) Ud) 3 ml INH RQ6 PRN PRN Reason: Shortness of Breath Alprazolam (Xanax) 0.5 mg PO Q4 PRN PRN Reason: Anxiety Last Admin: 07/19/18 00:06 Dose: 0.5 mg Aspirin (Ecotrin) 325 mg PO DAILY [facility] Last Admin: 07/19/18 08:46 Dose: 325 mg Atorvastatin Calcium (Lipitor) 20 mg PO HS [facility] Last Admin: 07/18/18 23:10 Dose: 20 mg Bisacodyl (Dulcolax) 10 mg [place] DAILY PRN PRN Reason: Constipation Last Admin: 07/19/18 11:52 Dose: 10 mg Diphenhydramine HCl (Benadryl) 25 mg PO Q8 PRN PRN Reason: Itching / Pruritus Docusate Sodium (Colace) 100 mg PO BID [facility] Last Admin: 07/19/18 19:44 Dose: 100 mg Folic Acid (Folic Acid) 1 mg PO DAILY [facility] Last Admin: 07/19/18 08:45 Dose: 1 mg Gabapentin (Neurontin) 300 mg PO Q8@0600,1400,2200 [facility] Guaifenesin (Robitussin) 200 mg PO Q4 PRN PRN Reason: for congestion Hamamelis (Tucks) 1 pad TP RQ4 PRN PRN Reason: Other Heparin Sodium (Porcine) (Heparin) 5,000 units SC Q8 [facility]; Protocol Last Admin: 07/19/18 16:15 Dose: 5,000 units Home Med (Ibandronate Sodium [Boniva]) 150 mg PO Q30D [facility] Home Med (Raloxifene [Evista]) 60 mg PO DAILY [facility] Hydroxychloroquine Sulfate (Plaquenil) 200 mg PO DAILY [facility]; Protocol Last Admin: 07/19/18 08:45 Dose: 200 mg Insulin Human Lispro (Humalog) 0 units SC ACHS [facility]; Protocol Last Admin: 07/19/18 16:49 Dose: Not Given Lactulose (Enulose) 10 gm PO DAILY PRN PRN Reason: Constipation Levothyroxine Sodium (Synthroid) 50 mcg PO DAILY@0630 [facility] Last Admin: 07/19/18 06:49 Dose: 50 mcg Metoprolol Tartrate (Lopressor) 25 mg PO Q12 [facility] Last Admin: 07/19/18 08:45 Dose: 25 mg Multivitamins/Minerals (Therapeutic-M Tab) 1 tab PO DAILY [facility] Last Admin: 07/19/18 08:45 Dose: 1 tab Ondansetron HCl (Zofran Tab) 8 mg PO Q8 PRN PRN Reason: Nausea/Vomiting Oxycodone/Acetaminophen (Percocet 5/325 Mg Tab) 1 tab PO Q6 PRN PRN Reason: Pain, moderate (4-7) Stop: 07/22/18 19:29 Oxycodone/Acetaminophen (Percocet 5/325 Mg Tab) 2 tab PO Q6 PRN PRN Reason: Pain, severe (8-10) Stop: 07/22/18 19:33 Pantoprazole Sodium (Protonix Ec Tab) 40 mg PO 0600 [facility] Last Admin: 07/19/18 06:51 Dose: 40 mg Prednisone (Prednisone Tab) 15 mg PO DAILY [facility] Stop: 07/19/18 23:00 Last Admin: 07/19/18 08:45 Dose: 15 mg Prednisone (Prednisone Tab) 10 mg PO DAILY [facility] Ranolazine (Ranexa) 500 mg PO BID [facility] Last Admin: 07/19/18 19:44 Dose: 500 mg Physical Exam - Constitutional Appears: Well - Head Exam Head Exam: ATRAUMATIC, NORMAL INSPECTION - Eye Exam Eye Exam: Normal appearance Pupil Exam: NORMAL ACCOMODATION Additional comments: left eye limited vision - ENT Exam ENT Exam: Mucous Membranes Moist - Neck Exam Neck exam: Positive for: Normal Inspection - Respiratory Exam Respiratory Exam: Clear to Auscultation Bilateral, NORMAL BREATHING PATTERN - Cardiovascular Exam Cardiovascular Exam: REGULAR RHYTHM - GI/Abdominal Exam GI & Abdominal Exam: Normal Bowel Sounds, Soft - Rectal Exam Rectal Exam: NORMAL INSPECTION - Exam External exam: NORMAL EXTERNAL EXAM - Extremities Exam Extremities exam: Positive for: normal inspection - Back Exam Back exam: NORMAL INSPECTION - Neurological Exam Neurological exam: Alert - Psychiatric Exam Psychiatric exam: Flat Affect - Skin Skin Exam: Normal Color Results - Vital Signs Recent Vital Signs: Last Vital Signs Temp 98.4 F 07/19/18 19:55 Pulse 80 07/19/18 19:55 Resp 20 07/19/18 19:55 BP 129/73 07/19/18 19:55 Pulse Ox 96 07/19/18 19:55 - Labs Labs: Laboratory Results - last 24 hr 07/18/18 07/19/18 07/19/18 20:44 06:48 11:04 POC Glucose (mg/dL) 96 80 102 07/19/18 15:40 POC Glucose (mg/dL) 134 H Assessment & Plan (1) CVA (cerebral vascular accident) Assessment and Plan: Also with history of HTn, CAD, Hypercholestremia, fibromyalgia , SLE admitted for acute rehab program. Plan for physical, occupational, rec and speech therapy program. To write overall plan of care for patient Status: Acute
--- NOTE | 2018-07-19 20:26 | PCM.OPOC ---
Physiatry Overall Plan of Care - Overall Plan of Care Estimated Length of Stay in Weeks: 3 Rehab Impairment: Mobility, Gait, Cognition, Speech, Balance, Coordination Etiologic Diagnosis: Cerebrovascular Accident Rehab/Medical Prognosis: Fair - Anticipated Interventions Physical Therapy:: Yes Occupational Therapy:: Yes Speech Therapy:: Yes Recreational Therapy:: Yes - Therapy Goals Bed Mobility: Independent Ambulation: Supervision Functional Positional Changes:: Independent - Functional Outcomes Functional Outcomes: fair - Discharge Plan Identification of Barriers to Discharge: Cognition Discharge Destination: Home
[2018-07-20] MEDS: Pantoprazole 40 mg EC Tab PO SCH (06:10)
[2018-07-20] MEDS: Levothyroxine 50 MCG TAB PO SCH (06:10)
[2018-07-20] MEDS: Insulin Lispro (humaLOG) 100 Units/ml Inj SC SCH ×4 (06:58→22:00)
[2018-07-20] MEDS: Aspirin 325 mg EC Tablets PO SCH (08:49)
[2018-07-20] MEDS: Multivitamin With Minerals Tab PO SCH (08:50)
[2018-07-20] MEDS: Ranolazine 500 mg Extended Release Tablets PO SCH ×2 (08:50→18:36)
--- NOTE | 2018-07-20 12:12 | CP.PCM.PN ---
Subjective - Date & Time of Evaluation Date of Evaluation: 07/20/18 Time of Evaluation: 12:00 - Subjective Subjective: patient is more alert, participating in the therapy plan for physical, occupational, rec and speech therapy Objective - Vital Signs/Intake and Output Vital Signs (last 24 hours): Temp Pulse Resp BP Pulse Ox 97.7 F 91 H 18 116/80 96 07/20/18 07:28 07/20/18 09:55 07/20/18 07:28 07/20/18 08:51 07/19/18 19:55 - Medications Medications: Current Medications Acetaminophen (Tylenol 325mg Tab) 650 mg PO Q6 PRN PRN Reason: Pain, Mild (1-3) Albuterol/Ipratropium (Duoneb 3 Mg/0.5 Mg (3 Ml) Ud) 3 ml INH RQ6 PRN PRN Reason: Shortness of Breath Alprazolam (Xanax) 0.5 mg PO Q4 PRN PRN Reason: Anxiety Last Admin: 07/19/18 00:06 Dose: 0.5 mg Aspirin (Ecotrin) 325 mg PO DAILY [facility] Last Admin: 07/20/18 08:49 Dose: 325 mg Atorvastatin Calcium (Lipitor) 20 mg PO HS [facility] Last Admin: 07/19/18 21:17 Dose: 20 mg Bisacodyl (Dulcolax) 10 mg [place] DAILY PRN PRN Reason: Constipation Last Admin: 07/19/18 11:52 Dose: 10 mg Diphenhydramine HCl (Benadryl) 25 mg PO Q8 PRN PRN Reason: Itching / Pruritus Docusate Sodium (Colace) 100 mg PO BID [facility] Last Admin: 07/20/18 08:48 Dose: 100 mg Folic Acid (Folic Acid) 1 mg PO DAILY [facility] Last Admin: 07/20/18 08:50 Dose: 1 mg Gabapentin (Neurontin) 300 mg PO Q8@0600,1400,2200 [facility] Last Admin: 07/20/18 06:10 Dose: 300 mg Guaifenesin (Robitussin) 200 mg PO Q4 PRN PRN Reason: for congestion Hamamelis (Tucks) 1 pad TP Q4 [facility] Last Admin: 07/20/18 08:50 Dose: 1 pad Heparin Sodium (Porcine) (Heparin) 5,000 units SC Q8 [facility]; Protocol Last Admin: 07/20/18 06:09 Dose: 5,000 units Home Med (Ibandronate Sodium [Boniva]) 150 mg PO Q30D [facility] Home Med (Raloxifene [Evista]) 60 mg PO DAILY [facility] Hydroxychloroquine Sulfate (Plaquenil) 200 mg PO DAILY [facility]; Protocol Last Admin: 07/19/18 08:45 Dose: 200 mg Insulin Human Lispro (Humalog) 0 units SC ACHS [facility]; Protocol Last Admin: 07/20/18 06:58 Dose: Not Given Lactulose (Enulose) 10 gm PO DAILY PRN PRN Reason: Constipation Levothyroxine Sodium (Synthroid) 50 mcg PO DAILY@0630 [facility] Last Admin: 07/20/18 06:10 Dose: 50 mcg Metoprolol Tartrate (Lopressor) 25 mg PO Q12 [facility] Last Admin: 07/20/18 08:51 Dose: 25 mg Multivitamins/Minerals (Therapeutic-M Tab) 1 tab PO DAILY [facility] Last Admin: 07/20/18 08:50 Dose: 1 tab Ondansetron HCl (Zofran Tab) 8 mg PO Q8 PRN PRN Reason: Nausea/Vomiting Oxycodone/Acetaminophen (Percocet 5/325 Mg Tab) 1 tab PO Q6 PRN PRN Reason: Pain, moderate (4-7) Stop: 07/22/18 19:29 Oxycodone/Acetaminophen (Percocet 5/325 Mg Tab) 2 tab PO Q6 PRN PRN Reason: Pain, severe (8-10) Stop: 07/22/18 19:33 Pantoprazole Sodium (Protonix Ec Tab) 40 mg PO 0600 [facility] Last Admin: 07/20/18 06:10 Dose: 40 mg Prednisone (Prednisone Tab) 10 mg PO DAILY [facility] Last Admin: 07/20/18 08:50 Dose: 10 mg Ranolazine (Ranexa) 500 mg PO BID [facility] Last Admin: 07/20/18 08:50 Dose: 500 mg - Constitutional Appears: Well - Head Exam Head Exam: ATRAUMATIC, NORMAL INSPECTION, NORMOCEPHALIC - Eye Exam Eye Exam: EOMI, Normal appearance, PERRL Pupil Exam: NORMAL ACCOMODATION - ENT Exam ENT Exam: Mucous Membranes Moist, Normal Exam - Neck Exam Neck Exam: Normal Inspection - Respiratory Exam Respiratory Exam: Clear to Ausculation Bilateral, NORMAL BREATHING PATTERN - Cardiovascular Exam Cardiovascular Exam: REGULAR RHYTHM - GI/Abdominal Exam GI & Abdominal Exam: Soft, Normal Bowel Sounds - Rectal Exam Rectal Exam: NORMAL INSPECTION - Exam External exam: NORMAL EXTERNAL EXAM - Extremities Exam Extremities Exam: Full ROM, Normal Capillary Refill, Normal Inspection - Back Exam Back Exam: NORMAL INSPECTION - Neurological Exam Neurological Exam: Alert, Awake Neuro motor strength exam: Left Upper Extremity: 3, Right Upper Extremity: 3, Left Lower Extremity: 3, Right Lower Extremity: 3 - Psychiatric Exam Psychiatric exam: Normal Affect - Skin Skin Exam: Dry Assessment and Plan (1) CVA (cerebral vascular accident) Assessment & Plan: plan or physical, occupational, rec and speech therapy discussed with family Status: Acute
[2018-07-20] MEDS ORDERED: Mupirocin 2% Cream TOP SCH (20:13)
[2018-07-20] MEDS: Artificial Tears Opht Soln OU SCH (21:41)
[2018-07-21] MEDS: Pantoprazole 40 mg EC Tab PO SCH (06:28)
[2018-07-21] MEDS: Levothyroxine 50 MCG TAB PO SCH (06:28)
[2018-07-21] MEDS: Insulin Lispro (humaLOG) 100 Units/ml Inj SC SCH ×4 (06:59→21:23)
[2018-07-21] MEDS: Artificial Tears Opht Soln OU SCH ×4 (09:09→21:33)
[2018-07-21] MEDS: Aspirin 325 mg EC Tablets PO SCH (09:11)
[2018-07-21] MEDS: Ranolazine 500 mg Extended Release Tablets PO SCH ×2 (09:11→17:48)
[2018-07-21] MEDS: Multivitamin With Minerals Tab PO SCH (09:12)
--- NOTE | 2018-07-21 22:23 | CP.PCM.HP ---
History of Present Illness - History of Present Illness History of Present Illness: CC: Acute CVA History of Present Illness: A 68 year old female admitted to acute rehab after diagnosis of [place] [facility]x of Pericardial effusion S/P Pericardial Window, CAD, HTN, Hypercholestemia & Fibromyalgia. Currently C/O Constipation. Denies Nausea or vomiting. Present on Admission - Present on Admission Any Indicators Present on Admission: No Review of Systems - Review of Systems All systems: reviewed and no additional remarkable complaints except Review of Systems: as per HPI Past Patient History - Past Medical History & Family History Past Medical History?: Yes Past Family History: Reviewed and not pertinent - Past Social History Smoking Status: Never Smoked Alcohol: None Drugs: Denies - CARDIAC Hx Cardiac Disorders: Yes Hx Hypertension: Yes - PULMONARY Hx Asthma: Yes Other/Comment: Pericardial effusion and pleural effusion - NEUROLOGICAL HX Cerebrovascular Accident: Yes - HEENT Hx HEENT Problems: Yes Hx Cataracts: Yes (Bilateral IOL) Other/Comment: Left eye sx. 2016 Macular hole full thickness and branch retinal vein occlusion - RENAL Hx Chronic Kidney Disease: No - ENDOCRINE/METABOLIC Hx Hypothyroidism: Yes - HEMATOLOGICAL/ONCOLOGICAL Hx Blood Disorders: No Hx AIDS: No Hx Human Immunodeficiency Virus (HIV): No - INTEGUMENTARY Hx Dermatological Problems: No - MUSCULOSKELETAL/RHEUMATOLOGICAL Hx Arthritis: Yes - GASTROINTESTINAL Hx Gastrointestinal Disorders: Yes Hx Gastroesophageal Reflux: Yes - GENITOURINARY/GYNECOLOGICAL Hx Genitourinary Disorders: No - PSYCHIATRIC Hx Psychophysiologic Disorder: No Hx Substance Use: No - SURGICAL HISTORY Hx Surgeries: Yes Hx Tonsillectomy: Yes Other/Comment: left thoracotomy and left pericardial window. 07/09/18 - ANESTHESIA Hx Anesthesia: Yes Hx Anesthesia Reactions: No Hx Malignant Hyperthermia: No Meds Home Medications: Home Medication List Medication Instructions Recorded Confirmed Type Atorvastatin [Lipitor] 20 mg PO HS #30 tab 07/31/18 Rx Gabapentin [Neurontin] 300 mg PO TID #30 cap 07/31/18 Rx Hydroxychloroquine Sulfate 200 mg PO DAILY #30 tablet 07/31/18 Rx [Plaquenil] Ibandronate Sodium [Boniva] 150 mg PO Q30D #1 tablet 07/31/18 Rx Lactulose [Constulose] 10 gm PO DAILY PRN #14 solution 07/31/18 Rx Levothyroxine [Synthroid] 50 mcg PO DAILY #30 tab 07/31/18 Rx Lidocaine 5% [Lidoderm] 1 ea TD DAILY #10 patch 07/31/18 Rx Metoprolol Tartrate [Lopressor] 25 mg PO Q12 #60 tab 07/31/18 Rx Mupirocin 2% Ointment [Bactroban 1 applic TOP BID tube 07/31/18 Rx Ointment] Pantoprazole Sodium [Protonix] 40 mg PO DAILY #30 tablet.dr 07/31/18 Rx Polyethylene Glycol/Polyvinyl 1 drop OU QID bottle 07/31/18 Rx [Artificial Tears] Raloxifene [Evista] 60 mg PO DAILY #30 tab 07/31/18 Rx Ranolazine [Ranexa] 500 mg PO BID #60 ter 07/31/18 Rx predniSONE [predniSONE Tab] 10 mg PO DAILY #30 tab 07/31/18 Rx Allergies/Adverse Reactions: Allergies Allergy/AdvReac Type Severity Reaction Status Date / Time Sulfa (Sulfonamide Allergy Intermediate RASH Verified 07/18/18 20:23 Antibiotics) methotrexate Allergy SHORTNESS Verified 07/18/18 20:23 OF BREATH Physical Exam - Constitutional Appears: Well, No Acute Distress - Head Exam Head Exam: ATRAUMATIC, NORMAL INSPECTION, NORMOCEPHALIC - Eye Exam Eye Exam: EOMI, Normal appearance, PERRL Pupil Exam: NORMAL ACCOMODATION, PERRL - ENT Exam ENT Exam: Mucous Membranes Moist, Normal Exam - Neck Exam Neck exam: Positive for: Full Rom, Normal Inspection - Respiratory Exam Respiratory Exam: Clear to Auscultation Bilateral, NORMAL BREATHING PATTERN - Cardiovascular Exam Cardiovascular Exam: REGULAR RHYTHM, +S1, +S2 - GI/Abdominal Exam GI & Abdominal Exam: Normal Bowel Sounds, Soft. absent: Tenderness - Extremities Exam Extremities exam: Positive for: normal inspection - Back Exam Back exam: NORMAL INSPECTION - Neurological Exam Neurological exam: Abnormal Gait, Alert, Motor Sensory Deficit, Oriented x3, Reflexes Normal Additional comments: Left CN VII Palsy. - Psychiatric Exam Psychiatric exam: Normal Affect, Normal Mood - Skin Skin Exam: Dry, Intact, Normal Color, Warm Results - Vital Signs Recent Vital Signs: Last Vital Signs Temp 98.2 F 07/21/18 20:00 Pulse 73 07/21/18 21:34 Resp 20 07/21/18 20:00 BP 142/73 07/21/18 21:34 Pulse Ox 100 07/21/18 08:49 - Labs Result Diagrams: 07/30/18 09:07 07/30/18 09:07 Labs: Laboratory Results - last 24 hr 07/21/18 06:30 POC Glucose (mg/dL) 89 Assessment & Plan (1) CVA (cerebral vascular accident) Status: Acute Priority: Medium (2) Pericardial effusion with cardiac tamponade Assessment and Plan: S/P Pericardial Window Status: Acute Priority: High (3) Hyperlipidemia Status: Chronic Priority: High (4) Hypertension Status: Chronic Priority: Low (5) Inflammatory arthritis Status: Acute (6) Hypothyroid Status: Acute - Assessment and Plan (Free Text) Plan: C/w ASA, Plaquinil, Lipitor C/W Metoprolol Lactulose Fleet Enema Lovenox Ranexa Prednisone 10mg PO daily D/w the patient and her Daughter, Ms. Dooley
--- NOTE | 2018-07-21 22:24 | CP.PCM.PN ---
Subjective - Date & Time of Evaluation Date of Evaluation: 07/20/18 Time of Evaluation: 18:45 Objective - Vital Signs/Intake and Output Vital Signs (last 24 hours): Temp Pulse Resp BP Pulse Ox 98.2 F 73 20 142/73 100 07/21/18 20:00 07/21/18 21:34 07/21/18 20:00 07/21/18 21:34 07/21/18 08:49 - Medications Medications: Current Medications Acetaminophen (Tylenol 325mg Tab) 650 mg PO Q6 PRN PRN Reason: Pain, Mild (1-3) Albuterol/Ipratropium (Duoneb 3 Mg/0.5 Mg (3 Ml) Ud) 3 ml INH RQ6 PRN PRN Reason: Shortness of Breath Alprazolam (Xanax) 0.5 mg PO Q4 PRN PRN Reason: Anxiety Last Admin: 07/21/18 21:48 Dose: 0.5 mg Artificial Tears (Artificial Tears) 1 drop OU QID [facility] Last Admin: 07/21/18 21:33 Dose: 1 drop Aspirin (Ecotrin) 325 mg PO DAILY [facility] Last Admin: 07/21/18 09:11 Dose: 325 mg Atorvastatin Calcium (Lipitor) 20 mg PO HS [facility] Last Admin: 07/21/18 21:34 Dose: 20 mg Bisacodyl (Dulcolax) 10 mg [place] DAILY PRN PRN Reason: Constipation Last Admin: 07/19/18 11:52 Dose: 10 mg Diphenhydramine HCl (Benadryl) 25 mg PO Q8 PRN PRN Reason: Itching / Pruritus Docusate Sodium (Colace) 100 mg PO BID [facility] Last Admin: 07/21/18 18:00 Dose: Not Given Folic Acid (Folic Acid) 1 mg PO DAILY [facility] Last Admin: 07/21/18 09:11 Dose: 1 mg Gabapentin (Neurontin) 300 mg PO Q8@0600,1400,2200 [facility] Last Admin: 07/21/18 21:35 Dose: 300 mg Guaifenesin (Robitussin) 200 mg PO Q4 PRN PRN Reason: for congestion Hamamelis (Tucks) 1 pad TP Q4 PRN PRN Reason: rectral discomfort Heparin Sodium (Porcine) (Heparin) 5,000 units SC Q8 [facility]; Protocol Last Admin: 07/21/18 21:34 Dose: 5,000 units Home Med (Ibandronate Sodium [Boniva]) 150 mg PO Q30D [facility] Home Med (Raloxifene [Evista]) 60 mg PO DAILY [facility] Hydroxychloroquine Sulfate (Plaquenil) 200 mg PO DAILY [facility]; Protocol Last Admin: 07/21/18 09:11 Dose: 200 mg Insulin Human Lispro (Humalog) 0 units SC ACHS [facility]; Protocol Last Admin: 07/21/18 21:23 Dose: Not Given Lactulose (Enulose) 10 gm PO DAILY PRN PRN Reason: Constipation Levothyroxine Sodium (Synthroid) 50 mcg PO DAILY@0630 [facility] Last Admin: 07/21/18 06:28 Dose: 50 mcg Metoprolol Tartrate (Lopressor) 25 mg PO Q12 [facility] Last Admin: 07/21/18 21:34 Dose: 25 mg Multivitamins/Minerals (Therapeutic-M Tab) 1 tab PO DAILY [facility] Last Admin: 07/21/18 09:12 Dose: 1 tab Mupirocin (Bactroban Ointment) 1 applic TOP BID [facility] Last Admin: 07/21/18 17:48 Dose: 1 applic Ondansetron HCl (Zofran Tab) 8 mg PO Q8 PRN PRN Reason: Nausea/Vomiting Oxycodone/Acetaminophen (Percocet 5/325 Mg Tab) 1 tab PO Q6 PRN PRN Reason: Pain, moderate (4-7) Stop: 07/22/18 19:29 Oxycodone/Acetaminophen (Percocet 5/325 Mg Tab) 2 tab PO Q6 PRN PRN Reason: Pain, severe (8-10) Stop: 07/22/18 19:33 Pantoprazole Sodium (Protonix Ec Tab) 40 mg PO 0600 [facility] Last Admin: 07/21/18 06:28 Dose: 40 mg Prednisone (Prednisone Tab) 10 mg PO DAILY [facility] Last Admin: 07/21/18 09:11 Dose: 10 mg Ranolazine (Ranexa) 500 mg PO BID [facility] Last Admin: 07/21/18 17:48 Dose: 500 mg
--- NOTE | 2018-07-21 22:25 | CP.PCM.PN ---
Subjective - Date & Time of Evaluation Date of Evaluation: 07/21/18 Time of Evaluation: 17:55 Objective - Vital Signs/Intake and Output Vital Signs (last 24 hours): Temp Pulse Resp BP Pulse Ox 98.2 F 73 20 142/73 100 07/21/18 20:00 07/21/18 21:34 07/21/18 20:00 07/21/18 21:34 07/21/18 08:49 - Medications Medications: Current Medications Acetaminophen (Tylenol 325mg Tab) 650 mg PO Q6 PRN PRN Reason: Pain, Mild (1-3) Albuterol/Ipratropium (Duoneb 3 Mg/0.5 Mg (3 Ml) Ud) 3 ml INH RQ6 PRN PRN Reason: Shortness of Breath Alprazolam (Xanax) 0.5 mg PO Q4 PRN PRN Reason: Anxiety Last Admin: 07/21/18 21:48 Dose: 0.5 mg Artificial Tears (Artificial Tears) 1 drop OU QID [facility] Last Admin: 07/21/18 21:33 Dose: 1 drop Aspirin (Ecotrin) 325 mg PO DAILY [facility] Last Admin: 07/21/18 09:11 Dose: 325 mg Atorvastatin Calcium (Lipitor) 20 mg PO HS [facility] Last Admin: 07/21/18 21:34 Dose: 20 mg Bisacodyl (Dulcolax) 10 mg [place] DAILY PRN PRN Reason: Constipation Last Admin: 07/19/18 11:52 Dose: 10 mg Diphenhydramine HCl (Benadryl) 25 mg PO Q8 PRN PRN Reason: Itching / Pruritus Docusate Sodium (Colace) 100 mg PO BID [facility] Last Admin: 07/21/18 18:00 Dose: Not Given Folic Acid (Folic Acid) 1 mg PO DAILY [facility] Last Admin: 07/21/18 09:11 Dose: 1 mg Gabapentin (Neurontin) 300 mg PO Q8@0600,1400,2200 [facility] Last Admin: 07/21/18 21:35 Dose: 300 mg Guaifenesin (Robitussin) 200 mg PO Q4 PRN PRN Reason: for congestion Hamamelis (Tucks) 1 pad TP Q4 PRN PRN Reason: rectral discomfort Heparin Sodium (Porcine) (Heparin) 5,000 units SC Q8 [facility]; Protocol Last Admin: 07/21/18 21:34 Dose: 5,000 units Home Med (Ibandronate Sodium [Boniva]) 150 mg PO Q30D [facility] Home Med (Raloxifene [Evista]) 60 mg PO DAILY [facility] Hydroxychloroquine Sulfate (Plaquenil) 200 mg PO DAILY [facility]; Protocol Last Admin: 07/21/18 09:11 Dose: 200 mg Insulin Human Lispro (Humalog) 0 units SC ACHS [facility]; Protocol Last Admin: 07/21/18 21:23 Dose: Not Given Lactulose (Enulose) 10 gm PO DAILY PRN PRN Reason: Constipation Levothyroxine Sodium (Synthroid) 50 mcg PO DAILY@0630 [facility] Last Admin: 07/21/18 06:28 Dose: 50 mcg Metoprolol Tartrate (Lopressor) 25 mg PO Q12 [facility] Last Admin: 07/21/18 21:34 Dose: 25 mg Multivitamins/Minerals (Therapeutic-M Tab) 1 tab PO DAILY [facility] Last Admin: 07/21/18 09:12 Dose: 1 tab Mupirocin (Bactroban Ointment) 1 applic TOP BID [facility] Last Admin: 07/21/18 17:48 Dose: 1 applic Ondansetron HCl (Zofran Tab) 8 mg PO Q8 PRN PRN Reason: Nausea/Vomiting Oxycodone/Acetaminophen (Percocet 5/325 Mg Tab) 1 tab PO Q6 PRN PRN Reason: Pain, moderate (4-7) Stop: 07/22/18 19:29 Oxycodone/Acetaminophen (Percocet 5/325 Mg Tab) 2 tab PO Q6 PRN PRN Reason: Pain, severe (8-10) Stop: 07/22/18 19:33 Pantoprazole Sodium (Protonix Ec Tab) 40 mg PO 0600 [facility] Last Admin: 07/21/18 06:28 Dose: 40 mg Prednisone (Prednisone Tab) 10 mg PO DAILY [facility] Last Admin: 07/21/18 09:11 Dose: 10 mg Ranolazine (Ranexa) 500 mg PO BID [facility] Last Admin: 07/21/18 17:48 Dose: 500 mg
[2018-07-22] MEDS: Insulin Lispro (humaLOG) 100 Units/ml Inj SC SCH ×4 (07:25→21:26)
[2018-07-22] MEDS: Levothyroxine 50 MCG TAB PO SCH (07:26)
[2018-07-22] MEDS: Pantoprazole 40 mg EC Tab PO SCH (07:26)
[2018-07-22] MEDS: Ranolazine 500 mg Extended Release Tablets PO SCH ×2 (09:09→17:31)
[2018-07-22] MEDS: Multivitamin With Minerals Tab PO SCH (09:09)
[2018-07-22] MEDS: Aspirin 325 mg EC Tablets PO SCH (09:10)
[2018-07-22] MEDS: Artificial Tears Opht Soln OU SCH ×4 (09:11→21:37)
--- NOTE | 2018-07-22 10:34 | CP.PCM.PN ---
Subjective - Date & Time of Evaluation Date of Evaluation: 07/21/18 Time of Evaluation: 10:00 - Subjective Subjective: no acute complaints at present Objective - Vital Signs/Intake and Output Vital Signs (last 24 hours): Temp Pulse Resp BP Pulse Ox 97.9 F 84 19 107/78 98 07/22/18 08:52 07/22/18 09:10 07/22/18 08:52 07/22/18 09:10 07/22/18 08:52 - Medications Medications: Current Medications Acetaminophen (Tylenol 325mg Tab) 650 mg PO Q6 PRN PRN Reason: Pain, Mild (1-3) Albuterol/Ipratropium (Duoneb 3 Mg/0.5 Mg (3 Ml) Ud) 3 ml INH RQ6 PRN PRN Reason: Shortness of Breath Alprazolam (Xanax) 0.5 mg PO Q4 PRN PRN Reason: Anxiety Last Admin: 07/21/18 21:48 Dose: 0.5 mg Artificial Tears (Artificial Tears) 1 drop OU QID [facility] Last Admin: 07/22/18 09:11 Dose: 1 drop Aspirin (Ecotrin) 325 mg PO DAILY [facility] Last Admin: 07/22/18 09:10 Dose: 325 mg Atorvastatin Calcium (Lipitor) 20 mg PO HS [facility] Last Admin: 07/21/18 21:34 Dose: 20 mg Bisacodyl (Dulcolax) 10 mg [place] DAILY PRN PRN Reason: Constipation Last Admin: 07/19/18 11:52 Dose: 10 mg Diphenhydramine HCl (Benadryl) 25 mg PO Q8 PRN PRN Reason: Itching / Pruritus Docusate Sodium (Colace) 100 mg PO BID [facility] Last Admin: 07/22/18 09:09 Dose: 100 mg Folic Acid (Folic Acid) 1 mg PO DAILY [facility] Last Admin: 07/22/18 09:10 Dose: 1 mg Gabapentin (Neurontin) 300 mg PO Q8@0600,1400,2200 [facility] Last Admin: 07/22/18 07:26 Dose: 300 mg Guaifenesin (Robitussin) 200 mg PO Q4 PRN PRN Reason: for congestion Hamamelis (Tucks) 1 pad TP Q4 PRN PRN Reason: rectral discomfort Heparin Sodium (Porcine) (Heparin) 5,000 units SC Q8 [facility]; Protocol Last Admin: 07/22/18 07:27 Dose: 5,000 units Home Med (Ibandronate Sodium [Boniva]) 150 mg PO Q30D [facility] Home Med (Raloxifene [Evista]) 60 mg PO DAILY [facility] Hydroxychloroquine Sulfate (Plaquenil) 200 mg PO DAILY [facility]; Protocol Insulin Human Lispro (Humalog) 0 units SC ACHS [facility]; Protocol Last Admin: 07/22/18 07:25 Dose: Not Given Lactulose (Enulose) 10 gm PO DAILY PRN PRN Reason: Constipation Levothyroxine Sodium (Synthroid) 50 mcg PO DAILY@0630 [facility] Last Admin: 07/22/18 07:26 Dose: 50 mcg Metoprolol Tartrate (Lopressor) 25 mg PO Q12 [facility] Last Admin: 07/22/18 09:10 Dose: 25 mg Multivitamins/Minerals (Therapeutic-M Tab) 1 tab PO DAILY [facility] Last Admin: 07/22/18 09:09 Dose: 1 tab Mupirocin (Bactroban Ointment) 1 applic TOP BID [facility] Last Admin: 07/22/18 09:10 Dose: 1 applic Ondansetron HCl (Zofran Tab) 8 mg PO Q8 PRN PRN Reason: Nausea/Vomiting Oxycodone/Acetaminophen (Percocet 5/325 Mg Tab) 1 tab PO Q6 PRN PRN Reason: Pain, moderate (4-7) Stop: 07/22/18 19:29 Oxycodone/Acetaminophen (Percocet 5/325 Mg Tab) 2 tab PO Q6 PRN PRN Reason: Pain, severe (8-10) Stop: 07/22/18 19:33 Pantoprazole Sodium (Protonix Ec Tab) 40 mg PO 0600 [facility] Last Admin: 07/22/18 07:26 Dose: 40 mg Prednisone (Prednisone Tab) 10 mg PO DAILY [facility] Last Admin: 07/22/18 09:09 Dose: 10 mg Ranolazine (Ranexa) 500 mg PO BID [facility] Last Admin: 07/22/18 09:09 Dose: 500 mg - Constitutional Appears: Well - Head Exam Head Exam: ATRAUMATIC, NORMAL INSPECTION, NORMOCEPHALIC - Eye Exam Eye Exam: EOMI, Normal appearance Pupil Exam: NORMAL ACCOMODATION, PERRL - ENT Exam ENT Exam: Mucous Membranes Moist, Normal Exam - Neck Exam Neck Exam: Full ROM, Normal Inspection - Respiratory Exam Respiratory Exam: Clear to Ausculation Bilateral, NORMAL BREATHING PATTERN - Cardiovascular Exam Cardiovascular Exam: REGULAR RHYTHM - GI/Abdominal Exam GI & Abdominal Exam: Soft, Normal Bowel Sounds - Rectal Exam Rectal Exam: NORMAL INSPECTION - Exam External exam: NORMAL EXTERNAL EXAM - Extremities Exam Extremities Exam: Full ROM, Normal Capillary Refill, Normal Inspection - Back Exam Back Exam: NORMAL INSPECTION - Neurological Exam Neurological Exam: Alert, Awake Neuro motor strength exam: Left Upper Extremity: 3, Right Upper Extremity: 3, Left Lower Extremity: 3, Right Lower Extremity: 3 - Psychiatric Exam Psychiatric exam: Normal Affect, Normal Mood - Skin Skin Exam: Normal Color Assessment and Plan (1) CVA (cerebral vascular accident) Assessment & Plan: plan for physical, occupational, rec and speech therapy. Pain management, monitor for constipation, and Dc planning Status: Acute
[2018-07-23] MEDS: Levothyroxine 50 MCG TAB PO SCH (05:38)
[2018-07-23] MEDS: Pantoprazole 40 mg EC Tab PO SCH (06:31)
[2018-07-23] MEDS: Insulin Lispro (humaLOG) 100 Units/ml Inj SC SCH (06:41)
[2018-07-23] MEDS: Artificial Tears Opht Soln OU SCH ×4 (08:21→21:32)
[2018-07-23] MEDS: Ranolazine 500 mg Extended Release Tablets PO SCH ×2 (08:23→16:53)
[2018-07-23] MEDS: Multivitamin With Minerals Tab PO SCH (08:29)
[2018-07-23] MEDS: Aspirin 325 mg EC Tablets PO SCH (08:32)
[2018-07-23] MEDS: Lidocaine 5% Patch TD SCH (12:47)
[2018-07-24] MEDS: Pantoprazole 40 mg EC Tab PO SCH (06:22)
[2018-07-24] MEDS: Levothyroxine 50 MCG TAB PO SCH (06:22)
[2018-07-24] MEDS: Insulin Lispro (humaLOG) 100 Units/ml Inj SC SCH (06:55)
[2018-07-24] MEDS: Artificial Tears Opht Soln OU SCH ×4 (08:34→21:22)
[2018-07-24] MEDS: Multivitamin With Minerals Tab PO SCH (08:36)
[2018-07-24] MEDS: Ranolazine 500 mg Extended Release Tablets PO SCH ×2 (08:36→16:20)
[2018-07-24] MEDS: Aspirin 325 mg EC Tablets PO SCH (08:38)
[2018-07-24] MEDS: Lidocaine 5% Patch TD SCH (08:39)
--- NOTE | 2018-07-25 00:16 | CP.PCM.PN ---
Subjective - Date & Time of Evaluation Date of Evaluation: 07/22/18 Time of Evaluation: 17:25 Objective - Vital Signs/Intake and Output Vital Signs (last 24 hours): Temp Pulse Resp BP Pulse Ox 97.0 F L 99 H 20 110/60 97 07/24/18 20:02 07/24/18 21:23 07/24/18 20:02 07/24/18 21:23 07/24/18 20:02 - Medications Medications: Current Medications Acetaminophen (Tylenol 325mg Tab) 650 mg PO Q6 PRN PRN Reason: Pain, Mild (1-3) Last Admin: 07/23/18 05:47 Dose: 650 mg Albuterol/Ipratropium (Duoneb 3 Mg/0.5 Mg (3 Ml) Ud) 3 ml INH RQ6 PRN PRN Reason: Shortness of Breath Alprazolam (Xanax) 0.5 mg PO Q4 PRN PRN Reason: Anxiety Last Admin: 07/24/18 23:07 Dose: 0.5 mg Artificial Tears (Artificial Tears) 1 drop OU QID [facility] Last Admin: 07/24/18 21:22 Dose: 1 drop Aspirin (Ecotrin) 325 mg PO DAILY [facility] Last Admin: 07/24/18 08:38 Dose: 325 mg Atorvastatin Calcium (Lipitor) 20 mg PO HS [facility] Last Admin: 07/24/18 21:23 Dose: 20 mg Bisacodyl (Dulcolax) 10 mg [place] DAILY PRN PRN Reason: Constipation Last Admin: 07/24/18 07:10 Dose: 10 mg Diphenhydramine HCl (Benadryl) 25 mg PO Q8 PRN PRN Reason: Itching / Pruritus Docusate Sodium (Colace) 100 mg PO BID [facility] Last Admin: 07/24/18 16:20 Dose: 100 mg Folic Acid (Folic Acid) 1 mg PO DAILY [facility] Last Admin: 07/24/18 08:37 Dose: 1 mg Gabapentin (Neurontin) 300 mg PO Q8@0600,1400,2200 [facility] Last Admin: 07/24/18 21:23 Dose: 300 mg Guaifenesin (Robitussin) 200 mg PO Q4 PRN PRN Reason: for congestion Hamamelis (Tucks) 1 pad TP Q4 PRN PRN Reason: rectral discomfort Heparin Sodium (Porcine) (Heparin) 5,000 units SC Q8 [facility]; Protocol Last Admin: 07/24/18 22:00 Dose: 5,000 units Home Med (Ibandronate Sodium [Boniva]) 150 mg PO Q30D [facility] Last Admin: 07/23/18 06:33 Dose: 150 mg Hydroxychloroquine Sulfate (Plaquenil) 200 mg PO DAILY [facility]; Protocol Last Admin: 07/24/18 08:37 Dose: 200 mg Insulin Human Lispro (Humalog) 0 units SC ACB [facility]; Protocol Last Admin: 07/24/18 06:55 Dose: Not Given Lactulose (Enulose) 10 gm PO DAILY PRN PRN Reason: Constipation Last Admin: 07/24/18 16:21 Dose: 10 gm Levothyroxine Sodium (Synthroid) 50 mcg PO DAILY@0630 [facility] Last Admin: 07/24/18 06:22 Dose: 50 mcg Lidocaine (Lidoderm) 1 ea TD DAILY [facility] Last Admin: 07/24/18 08:39 Dose: 1 ea Metoprolol Tartrate (Lopressor) 25 mg PO Q12 [facility] Last Admin: 07/24/18 21:23 Dose: 25 mg Multivitamins/Minerals (Therapeutic-M Tab) 1 tab PO DAILY [facility] Last Admin: 07/24/18 08:36 Dose: 1 tab Mupirocin (Bactroban Ointment) 1 applic TOP BID [facility] Last Admin: 07/24/18 16:19 Dose: 1 applic Ondansetron HCl (Zofran Tab) 8 mg PO Q8 PRN PRN Reason: Nausea/Vomiting Pantoprazole Sodium (Protonix Ec Tab) 40 mg PO 0600 [facility] Last Admin: 07/24/18 06:22 Dose: 40 mg Prednisone (Prednisone Tab) 10 mg PO DAILY [facility] Last Admin: 07/24/18 08:38 Dose: 10 mg Ranolazine (Ranexa) 500 mg PO BID [facility] Last Admin: 07/24/18 16:20 Dose: 500 mg Sodium Phosphate (Fleet Enema) 135 ml [place] ONCE ONE Stop: 07/25/18 06:01
--- NOTE | 2018-07-25 00:17 | CP.PCM.PN ---
Subjective - Date & Time of Evaluation Date of Evaluation: 07/24/18 Time of Evaluation: 17:40 Objective - Vital Signs/Intake and Output Vital Signs (last 24 hours): Temp Pulse Resp BP Pulse Ox 97.0 F L 99 H 20 110/60 97 07/24/18 20:02 07/24/18 21:23 07/24/18 20:02 07/24/18 21:23 07/24/18 20:02 - Medications Medications: Current Medications Acetaminophen (Tylenol 325mg Tab) 650 mg PO Q6 PRN PRN Reason: Pain, Mild (1-3) Last Admin: 07/23/18 05:47 Dose: 650 mg Albuterol/Ipratropium (Duoneb 3 Mg/0.5 Mg (3 Ml) Ud) 3 ml INH RQ6 PRN PRN Reason: Shortness of Breath Alprazolam (Xanax) 0.5 mg PO Q4 PRN PRN Reason: Anxiety Last Admin: 07/24/18 23:07 Dose: 0.5 mg Artificial Tears (Artificial Tears) 1 drop OU QID [facility] Last Admin: 07/24/18 21:22 Dose: 1 drop Aspirin (Ecotrin) 325 mg PO DAILY [facility] Last Admin: 07/24/18 08:38 Dose: 325 mg Atorvastatin Calcium (Lipitor) 20 mg PO HS [facility] Last Admin: 07/24/18 21:23 Dose: 20 mg Bisacodyl (Dulcolax) 10 mg [place] DAILY PRN PRN Reason: Constipation Last Admin: 07/24/18 07:10 Dose: 10 mg Diphenhydramine HCl (Benadryl) 25 mg PO Q8 PRN PRN Reason: Itching / Pruritus Docusate Sodium (Colace) 100 mg PO BID [facility] Last Admin: 07/24/18 16:20 Dose: 100 mg Folic Acid (Folic Acid) 1 mg PO DAILY [facility] Last Admin: 07/24/18 08:37 Dose: 1 mg Gabapentin (Neurontin) 300 mg PO Q8@0600,1400,2200 [facility] Last Admin: 07/24/18 21:23 Dose: 300 mg Guaifenesin (Robitussin) 200 mg PO Q4 PRN PRN Reason: for congestion Hamamelis (Tucks) 1 pad TP Q4 PRN PRN Reason: rectral discomfort Heparin Sodium (Porcine) (Heparin) 5,000 units SC Q8 [facility]; Protocol Last Admin: 07/24/18 22:00 Dose: 5,000 units Home Med (Ibandronate Sodium [Boniva]) 150 mg PO Q30D [facility] Last Admin: 07/23/18 06:33 Dose: 150 mg Hydroxychloroquine Sulfate (Plaquenil) 200 mg PO DAILY [facility]; Protocol Last Admin: 07/24/18 08:37 Dose: 200 mg Insulin Human Lispro (Humalog) 0 units SC ACB [facility]; Protocol Last Admin: 07/24/18 06:55 Dose: Not Given Lactulose (Enulose) 10 gm PO DAILY PRN PRN Reason: Constipation Last Admin: 07/24/18 16:21 Dose: 10 gm Levothyroxine Sodium (Synthroid) 50 mcg PO DAILY@0630 [facility] Last Admin: 07/24/18 06:22 Dose: 50 mcg Lidocaine (Lidoderm) 1 ea TD DAILY [facility] Last Admin: 07/24/18 08:39 Dose: 1 ea Metoprolol Tartrate (Lopressor) 25 mg PO Q12 [facility] Last Admin: 07/24/18 21:23 Dose: 25 mg Multivitamins/Minerals (Therapeutic-M Tab) 1 tab PO DAILY [facility] Last Admin: 07/24/18 08:36 Dose: 1 tab Mupirocin (Bactroban Ointment) 1 applic TOP BID [facility] Last Admin: 07/24/18 16:19 Dose: 1 applic Ondansetron HCl (Zofran Tab) 8 mg PO Q8 PRN PRN Reason: Nausea/Vomiting Pantoprazole Sodium (Protonix Ec Tab) 40 mg PO 0600 [facility] Last Admin: 07/24/18 06:22 Dose: 40 mg Prednisone (Prednisone Tab) 10 mg PO DAILY [facility] Last Admin: 07/24/18 08:38 Dose: 10 mg Ranolazine (Ranexa) 500 mg PO BID [facility] Last Admin: 07/24/18 16:20 Dose: 500 mg Sodium Phosphate (Fleet Enema) 135 ml [place] ONCE ONE Stop: 07/25/18 06:01
--- NOTE | 2018-07-25 00:18 | CP.PCM.PN ---
Subjective - Date & Time of Evaluation Date of Evaluation: 07/23/18 Time of Evaluation: 19:10 Objective - Vital Signs/Intake and Output Vital Signs (last 24 hours): Temp Pulse Resp BP Pulse Ox 97.0 F L 99 H 20 110/60 97 07/24/18 20:02 07/24/18 21:23 07/24/18 20:02 07/24/18 21:23 07/24/18 20:02 - Medications Medications: Current Medications Acetaminophen (Tylenol 325mg Tab) 650 mg PO Q6 PRN PRN Reason: Pain, Mild (1-3) Last Admin: 07/23/18 05:47 Dose: 650 mg Albuterol/Ipratropium (Duoneb 3 Mg/0.5 Mg (3 Ml) Ud) 3 ml INH RQ6 PRN PRN Reason: Shortness of Breath Alprazolam (Xanax) 0.5 mg PO Q4 PRN PRN Reason: Anxiety Last Admin: 07/24/18 23:07 Dose: 0.5 mg Artificial Tears (Artificial Tears) 1 drop OU QID [facility] Last Admin: 07/24/18 21:22 Dose: 1 drop Aspirin (Ecotrin) 325 mg PO DAILY [facility] Last Admin: 07/24/18 08:38 Dose: 325 mg Atorvastatin Calcium (Lipitor) 20 mg PO HS [facility] Last Admin: 07/24/18 21:23 Dose: 20 mg Bisacodyl (Dulcolax) 10 mg [place] DAILY PRN PRN Reason: Constipation Last Admin: 07/24/18 07:10 Dose: 10 mg Diphenhydramine HCl (Benadryl) 25 mg PO Q8 PRN PRN Reason: Itching / Pruritus Docusate Sodium (Colace) 100 mg PO BID [facility] Last Admin: 07/24/18 16:20 Dose: 100 mg Folic Acid (Folic Acid) 1 mg PO DAILY [facility] Last Admin: 07/24/18 08:37 Dose: 1 mg Gabapentin (Neurontin) 300 mg PO Q8@0600,1400,2200 [facility] Last Admin: 07/24/18 21:23 Dose: 300 mg Guaifenesin (Robitussin) 200 mg PO Q4 PRN PRN Reason: for congestion Hamamelis (Tucks) 1 pad TP Q4 PRN PRN Reason: rectral discomfort Heparin Sodium (Porcine) (Heparin) 5,000 units SC Q8 [facility]; Protocol Last Admin: 07/24/18 22:00 Dose: 5,000 units Home Med (Ibandronate Sodium [Boniva]) 150 mg PO Q30D [facility] Last Admin: 07/23/18 06:33 Dose: 150 mg Hydroxychloroquine Sulfate (Plaquenil) 200 mg PO DAILY [facility]; Protocol Last Admin: 07/24/18 08:37 Dose: 200 mg Insulin Human Lispro (Humalog) 0 units SC ACB [facility]; Protocol Last Admin: 07/24/18 06:55 Dose: Not Given Lactulose (Enulose) 10 gm PO DAILY PRN PRN Reason: Constipation Last Admin: 07/24/18 16:21 Dose: 10 gm Levothyroxine Sodium (Synthroid) 50 mcg PO DAILY@0630 [facility] Last Admin: 07/24/18 06:22 Dose: 50 mcg Lidocaine (Lidoderm) 1 ea TD DAILY [facility] Last Admin: 07/24/18 08:39 Dose: 1 ea Metoprolol Tartrate (Lopressor) 25 mg PO Q12 [facility] Last Admin: 07/24/18 21:23 Dose: 25 mg Multivitamins/Minerals (Therapeutic-M Tab) 1 tab PO DAILY [facility] Last Admin: 07/24/18 08:36 Dose: 1 tab Mupirocin (Bactroban Ointment) 1 applic TOP BID [facility] Last Admin: 07/24/18 16:19 Dose: 1 applic Ondansetron HCl (Zofran Tab) 8 mg PO Q8 PRN PRN Reason: Nausea/Vomiting Pantoprazole Sodium (Protonix Ec Tab) 40 mg PO 0600 [facility] Last Admin: 07/24/18 06:22 Dose: 40 mg Prednisone (Prednisone Tab) 10 mg PO DAILY [facility] Last Admin: 07/24/18 08:38 Dose: 10 mg Ranolazine (Ranexa) 500 mg PO BID [facility] Last Admin: 07/24/18 16:20 Dose: 500 mg Sodium Phosphate (Fleet Enema) 135 ml [place] ONCE ONE Stop: 07/25/18 06:01
[2018-07-25] MEDS: Levothyroxine 50 MCG TAB PO SCH (06:08)
[2018-07-25] MEDS: Pantoprazole 40 mg EC Tab PO SCH (06:08)
[2018-07-25] MEDS: Insulin Lispro (humaLOG) 100 Units/ml Inj SC SCH (06:36)
[2018-07-25] MEDS: Artificial Tears Opht Soln OU SCH ×4 (08:30→21:12)
[2018-07-25] MEDS: Aspirin 325 mg EC Tablets PO SCH (08:32)
[2018-07-25] MEDS: Lidocaine 5% Patch TD SCH (08:33)
[2018-07-25] MEDS: Ranolazine 500 mg Extended Release Tablets PO SCH ×2 (08:36→16:32)
[2018-07-25] MEDS: Multivitamin With Minerals Tab PO SCH (08:37)
--- NOTE | 2018-07-25 11:21 | CP.PCM.PN ---
Subjective - Date & Time of Evaluation Date of Evaluation: 07/23/18 Time of Evaluation: 19:00 - Subjective Subjective: no acute complaints at present Objective - Vital Signs/Intake and Output Vital Signs (last 24 hours): Temp Pulse Resp BP Pulse Ox 99.3 F 106 H 19 127/74 95 07/25/18 11:03 07/25/18 08:35 07/25/18 08:16 07/25/18 08:35 07/25/18 08:16 - Medications Medications: Current Medications Acetaminophen (Tylenol 325mg Tab) 650 mg PO Q6 PRN PRN Reason: Pain, Mild (1-3) Last Admin: 07/25/18 11:03 Dose: 650 mg Albuterol/Ipratropium (Duoneb 3 Mg/0.5 Mg (3 Ml) Ud) 3 ml INH RQ6 PRN PRN Reason: Shortness of Breath Alprazolam (Xanax) 0.5 mg PO Q4 PRN PRN Reason: Anxiety Last Admin: 07/24/18 23:07 Dose: 0.5 mg Artificial Tears (Artificial Tears) 1 drop OU QID [facility] Last Admin: 07/25/18 08:30 Dose: 1 drop Aspirin (Ecotrin) 325 mg PO DAILY [facility] Last Admin: 07/25/18 08:32 Dose: 325 mg Atorvastatin Calcium (Lipitor) 20 mg PO HS [facility] Last Admin: 07/24/18 21:23 Dose: 20 mg Bisacodyl (Dulcolax) 10 mg [place] DAILY PRN PRN Reason: Constipation Last Admin: 07/24/18 07:10 Dose: 10 mg Diphenhydramine HCl (Benadryl) 25 mg PO Q8 PRN PRN Reason: Itching / Pruritus Docusate Sodium (Colace) 100 mg PO BID [facility] Last Admin: 07/25/18 08:31 Dose: 100 mg Folic Acid (Folic Acid) 1 mg PO DAILY [facility] Last Admin: 07/25/18 08:33 Dose: 1 mg Gabapentin (Neurontin) 300 mg PO Q8@0600,1400,2200 [facility] Last Admin: 07/25/18 06:08 Dose: 300 mg Guaifenesin (Robitussin) 200 mg PO Q4 PRN PRN Reason: for congestion Hamamelis (Tucks) 1 pad TP Q4 PRN PRN Reason: rectral discomfort Heparin Sodium (Porcine) (Heparin) 5,000 units SC Q8 [facility]; Protocol Last Admin: 07/25/18 06:08 Dose: 5,000 units Home Med (Ibandronate Sodium [Boniva]) 150 mg PO Q30D [facility] Last Admin: 07/23/18 06:33 Dose: 150 mg Hydroxychloroquine Sulfate (Plaquenil) 200 mg PO DAILY [facility]; Protocol Last Admin: 07/25/18 08:36 Dose: 200 mg Insulin Human Lispro (Humalog) 0 units SC ACB [facility]; Protocol Last Admin: 07/25/18 06:36 Dose: Not Given Lactulose (Enulose) 10 gm PO DAILY PRN PRN Reason: Constipation Last Admin: 07/24/18 16:21 Dose: 10 gm Levothyroxine Sodium (Synthroid) 50 mcg PO DAILY@0630 [facility] Last Admin: 07/25/18 06:08 Dose: 50 mcg Lidocaine (Lidoderm) 1 ea TD DAILY [facility] Last Admin: 07/25/18 08:33 Dose: 1 ea Metoprolol Tartrate (Lopressor) 25 mg PO Q12 [facility] Last Admin: 07/25/18 08:35 Dose: 25 mg Multivitamins/Minerals (Therapeutic-M Tab) 1 tab PO DAILY [facility] Last Admin: 07/25/18 08:37 Dose: 1 tab Mupirocin (Bactroban Ointment) 1 applic TOP BID [facility] Last Admin: 07/25/18 08:30 Dose: 1 applic Ondansetron HCl (Zofran Tab) 8 mg PO Q8 PRN PRN Reason: Nausea/Vomiting Pantoprazole Sodium (Protonix Ec Tab) 40 mg PO 0600 [facility] Last Admin: 07/25/18 06:08 Dose: 40 mg Prednisone (Prednisone Tab) 10 mg PO DAILY [facility] Last Admin: 07/25/18 08:36 Dose: 10 mg Ranolazine (Ranexa) 500 mg PO BID [facility] Last Admin: 07/25/18 08:36 Dose: 500 mg - Constitutional Appears: Well - Head Exam Head Exam: ATRAUMATIC, NORMAL INSPECTION, NORMOCEPHALIC - Eye Exam Eye Exam: EOMI, Normal appearance, PERRL Pupil Exam: NORMAL ACCOMODATION - ENT Exam ENT Exam: Mucous Membranes Moist, Normal Exam - Neck Exam Neck Exam: Normal Inspection - Respiratory Exam Respiratory Exam: Clear to Ausculation Bilateral, NORMAL BREATHING PATTERN - Cardiovascular Exam Cardiovascular Exam: REGULAR RHYTHM - GI/Abdominal Exam GI & Abdominal Exam: Soft, Normal Bowel Sounds - Rectal Exam Rectal Exam: NORMAL INSPECTION - Exam External exam: NORMAL EXTERNAL EXAM - Extremities Exam Extremities Exam: Full ROM, Normal Capillary Refill, Normal Inspection - Back Exam Back Exam: NORMAL INSPECTION - Neurological Exam Neurological Exam: Alert, Awake Neuro motor strength exam: Left Upper Extremity: 3, Right Upper Extremity: 3, Left Lower Extremity: 3, Right Lower Extremity: 3 - Psychiatric Exam Psychiatric exam: Normal Mood - Skin Skin Exam: Dry, Intact Assessment and Plan (1) CVA (cerebral vascular accident) Assessment & Plan: plan for physical, occupational, rec and speech therapy program Status: Acute
--- NOTE | 2018-07-25 11:23 | CP.PCM.PN ---
Subjective - Date & Time of Evaluation Date of Evaluation: 07/25/18 Time of Evaluation: 11:00 - Subjective Subjective: no acute neck or back pain Objective - Vital Signs/Intake and Output Vital Signs (last 24 hours): Temp Pulse Resp BP Pulse Ox 99.3 F 106 H 19 127/74 95 07/25/18 11:03 07/25/18 08:35 07/25/18 08:16 07/25/18 08:35 07/25/18 08:16 - Medications Medications: Current Medications Acetaminophen (Tylenol 325mg Tab) 650 mg PO Q6 PRN PRN Reason: Pain, Mild (1-3) Last Admin: 07/25/18 11:03 Dose: 650 mg Albuterol/Ipratropium (Duoneb 3 Mg/0.5 Mg (3 Ml) Ud) 3 ml INH RQ6 PRN PRN Reason: Shortness of Breath Alprazolam (Xanax) 0.5 mg PO Q4 PRN PRN Reason: Anxiety Last Admin: 07/24/18 23:07 Dose: 0.5 mg Artificial Tears (Artificial Tears) 1 drop OU QID [facility] Last Admin: 07/25/18 08:30 Dose: 1 drop Aspirin (Ecotrin) 325 mg PO DAILY [facility] Last Admin: 07/25/18 08:32 Dose: 325 mg Atorvastatin Calcium (Lipitor) 20 mg PO HS [facility] Last Admin: 07/24/18 21:23 Dose: 20 mg Bisacodyl (Dulcolax) 10 mg [place] DAILY PRN PRN Reason: Constipation Last Admin: 07/24/18 07:10 Dose: 10 mg Diphenhydramine HCl (Benadryl) 25 mg PO Q8 PRN PRN Reason: Itching / Pruritus Docusate Sodium (Colace) 100 mg PO BID [facility] Last Admin: 07/25/18 08:31 Dose: 100 mg Folic Acid (Folic Acid) 1 mg PO DAILY [facility] Last Admin: 07/25/18 08:33 Dose: 1 mg Gabapentin (Neurontin) 300 mg PO Q8@0600,1400,2200 [facility] Last Admin: 07/25/18 06:08 Dose: 300 mg Guaifenesin (Robitussin) 200 mg PO Q4 PRN PRN Reason: for congestion Hamamelis (Tucks) 1 pad TP Q4 PRN PRN Reason: rectral discomfort Heparin Sodium (Porcine) (Heparin) 5,000 units SC Q8 [facility]; Protocol Last Admin: 07/25/18 06:08 Dose: 5,000 units Home Med (Ibandronate Sodium [Boniva]) 150 mg PO Q30D [facility] Last Admin: 07/23/18 06:33 Dose: 150 mg Hydroxychloroquine Sulfate (Plaquenil) 200 mg PO DAILY [facility]; Protocol Last Admin: 07/25/18 08:36 Dose: 200 mg Insulin Human Lispro (Humalog) 0 units SC ACB [facility]; Protocol Last Admin: 07/25/18 06:36 Dose: Not Given Lactulose (Enulose) 10 gm PO DAILY PRN PRN Reason: Constipation Last Admin: 07/24/18 16:21 Dose: 10 gm Levothyroxine Sodium (Synthroid) 50 mcg PO DAILY@0630 [facility] Last Admin: 07/25/18 06:08 Dose: 50 mcg Lidocaine (Lidoderm) 1 ea TD DAILY [facility] Last Admin: 07/25/18 08:33 Dose: 1 ea Metoprolol Tartrate (Lopressor) 25 mg PO Q12 [facility] Last Admin: 07/25/18 08:35 Dose: 25 mg Multivitamins/Minerals (Therapeutic-M Tab) 1 tab PO DAILY [facility] Last Admin: 07/25/18 08:37 Dose: 1 tab Mupirocin (Bactroban Ointment) 1 applic TOP BID [facility] Last Admin: 07/25/18 08:30 Dose: 1 applic Ondansetron HCl (Zofran Tab) 8 mg PO Q8 PRN PRN Reason: Nausea/Vomiting Pantoprazole Sodium (Protonix Ec Tab) 40 mg PO 0600 [facility] Last Admin: 07/25/18 06:08 Dose: 40 mg Prednisone (Prednisone Tab) 10 mg PO DAILY [facility] Last Admin: 07/25/18 08:36 Dose: 10 mg Ranolazine (Ranexa) 500 mg PO BID [facility] Last Admin: 07/25/18 08:36 Dose: 500 mg - Constitutional Appears: Well - Head Exam Head Exam: ATRAUMATIC, NORMAL INSPECTION, NORMOCEPHALIC - Eye Exam Eye Exam: EOMI, Normal appearance, PERRL Pupil Exam: NORMAL ACCOMODATION - ENT Exam ENT Exam: Mucous Membranes Moist, Normal Exam - Neck Exam Neck Exam: Full ROM, Normal Inspection - Respiratory Exam Respiratory Exam: Clear to Ausculation Bilateral, NORMAL BREATHING PATTERN - Cardiovascular Exam Cardiovascular Exam: REGULAR RHYTHM - GI/Abdominal Exam GI & Abdominal Exam: Normal Bowel Sounds - Rectal Exam Rectal Exam: NORMAL INSPECTION - Exam External exam: NORMAL EXTERNAL EXAM - Extremities Exam Extremities Exam: Full ROM, Normal Capillary Refill, Normal Inspection - Back Exam Back Exam: NORMAL INSPECTION - Neurological Exam Neurological Exam: Alert, Awake Neuro motor strength exam: Left Upper Extremity: 3, Right Upper Extremity: 3, Left Lower Extremity: 3, Right Lower Extremity: 3 - Psychiatric Exam Psychiatric exam: Normal Affect - Skin Skin Exam: Dry Assessment and Plan (1) CVA (cerebral vascular accident) Assessment & Plan: paln for team conference today to discuss Dc planning and DC date possible DC for 07/31 pt, ot rec and speech therapy Status: Acute
--- NOTE | 2018-07-25 12:07 | PCM.PSYTMC ---
Acute Rehab Team Conference - - Vital Signs: Vital Signs (Last 8 Hours): Vital Signs 07/25/18 07/25/18 07/25/18 07:57 08:04 08:16 Temperature 100.2 F H 100.2 F H Pulse Rate 106 H 106 H 106 H Respiratory 19 Rate Blood Pressure 127/74 127/74 127/74 O2 Sat by Pulse 95 Oximetry 07/25/18 07/25/18 07/25/18 08:35 11:01 11:03 Temperature 99.3 F 99.3 F Pulse Rate 106 H Respiratory Rate Blood Pressure 127/74 O2 Sat by Pulse Oximetry Pain: 3 - Precautions: Precautions: Fall Prevention, Aspiration, Pressure Ulcer - Medications/Other Issues: Comment: -Hx of Lupus - Prednisone 10 mg. -Generalized weakness - Consults: Comment: Dr. Valadez - Physiatry - Toileting: Toileting: Minimal Assistance - Bladder Management: Bladder Pattern: Normal Voiding Method: Toilet Bladder Management: Minimal Assistance - Transfers: Transfers: Minimal Assistance - ADL's: ADL's: Minimal Assistance - Pain Management: Other Intervention:: -Tylenol 650 mg for pain scale 1-3 - Patient/Family Teaching: Other Intervention:: daughter @ bedside - Goals/Time Frame: Comment: Keep patient safe, administered medication as prescribed, and having regular bowel movements until discharge date or next team conference. - Provider: Registered Nurse:: Zaida Barros Physical Therapy - Bed Mobility Bed Mobility: Verbal Cues, Contact Guard, Minimal Assistance Comment: rolling CS. vc for sequencing and safety, mainor supine to sit - Transfers Wheelchair to Mat: Verbal Cues, Contact Guard Sit to Stand: Verbal Cues, Contact Guard Comment: vc for sequencing and safety. Decr'd vc needed today for hand placement during t/f. - Ambulation Level of Assistance: Verbal Cues Distance (ft.): 150 Assistive Devices: N/A, Rolling Walker Comment: 150' x1, 125' x1 w/ RW CS occ CG for balance. narrow NOHEMY, decr'd gait speed/hadley, decr'd step/stride length, decr'd push off L foot. vc for upright posture, to remain inside frame of RW, L heel strike. difficulty pushing RW in straight path today. 125' x2, 150' x2 w/o AD CG w/ occ L [employer]. decr'd reciprocal arm swing noted, (pt also tends to hold hands in clasped fashion in front of body) narrow NOHEMY, slightly unsteady mainor w/ turns (tends to lean to R), narrow NOHEMY, decr'd gait speed/hadley, decr'd step/stride length, decr'd L push off. difficulty navigating turns and obstacles, mainor amb w/o AD - Stair Negotiation Stairs: Level of Assistance: Contact Guard Number of Stairs: 8 Handrails: Bilateral Comment: 6 in steps, step through pattern w/ asc, step to w/ desc (pt preference). narrow NOHEMY, decr'd push off L foot - Standing Balance Static Stand: Contact Guard Assist Comment: w/ RW - Pain Pain (assessed during therapy session): 3 Alleviating Techniques: Medication, Relaxation Techniques - Insight/Carryover Insight/Carryover: Fair - Patient/Family Education Comment: DME, PT goals, POC, fxnl mob, safety, posture, CVA recovery topics - Assessment/Plan Assessment: 68 yo female admitted to [facility] acute rehab for comprehensive therapy services s/p acute R CVA. Pt demonstrates impaired strength, balance, ROM, activity tolerance, safety awareness and fxnl mob. Currently pt requires CG/min A for bed mob and CG/CS for ambulatory tasks including stairs. Cont'd skilled acute rehab PT recommended to maximize fxnl mob outcomes. - Goals Timeframe: 2 weeks Goals: bed mob indep. t/f mod I without device. mod I without device x 500 feet. S with SPC in community x 1000 feet. single rail and SPC x 2 flights of 8 inch steps with S. improvement to score of at least 40/56 on KU balance score demonstrating a clinically significant reduction in falls to improve safety with all mobility - Provider Physical Therapist:: Nay Hill License Number:: [id number] Occupational Therapy - Arousal/Attention/Orientation Level of Consciousness: Awake, Alert Patient Orientation: Person, Place, Time, Appropriate to Age, Appropriate to Situation - ADL/IADL Self Feeding: Set-up Help Grooming: Supervision, Verbal Cues, Set-up Help Bathing-Upper Ext: Supervision, Verbal Cues Bathing-Lower Ext: Supervision, Verbal Cues, Set-up Help, Contact Guard Dressing-Upper Ext: Independent, Set-up Help Dressing-Lower Ext: Supervision, Verbal Cues, Set-up Help Comment: take longer than customary - Sitting Balance Static Sitting: Independent without upper extremity support Dynamic Sitting: Reaches across midline, Reaches out of base of support, Reaches within base of support, Requires supervision Comment: seated unsupported - Transfers Wheelchair to Bed Transfers: Supervision, Verbal Cues, Set-up Help Toilet Transfers: Supervision, Verbal Cues, Set-up Help Comment: shower transfers: CG/CS and verbal cues for pacing, reaching/steppoing back - Wheelchair Management Level of Assistance: Not Applicable - Upper Extremity Status Right Upper Extremity Comment: AROM WFLS: 4-/5 Left Upper Extremity Comment: AROm is WFLs: 4-/5 - Pain Alleviating Techniques: Medication, Inactivity - Insight/Carryover Insight/Carryover: Good - Patient/Family Education Comment: -adls, transfers/mobility training using adaptive/compensatory strategies. -uses/applications of grab bars, shower chair with back. - importance of sitting up in chair duirngthe day for recovery. - standingbalance/tolerance - Goals Timeframe: 1 week Comment: -FEEDING: Mod I. -GROOMING: Mod I standing. -UPPER BODY DRESSING: Mod I. -LOWER BODY DRESSING; Mod I. -TRANSFERS: <->bed, toilet, chair and other surfaces with Mod I, <->tub/shower with Supervision/daniel. -CAREGIVER ED: angelica to be I assisting pt with daily tasks, IAdls,mobility/transfers prn - Provider Occupational Therapist:: Judith Mccormack License Number: [id number] Speech Therapy - Consult Information Patient on Program: Yes Medical Diagnosis: CVA Treatment Diagnosis: -mild cognitive linguistic deficits. -mild dysarthria. - mild dysphagia - Assessment Memory Impairment: Mild Speech/Articulation Impairment: Mild Dysphagia/Swallowing Impairment: Mild - Plan Assessment: Frannie Cortés presents with 1.) mild cognitive-linguistic deficits characterized by difficulty following more complex commands, impaired thought organization with delayed response time, and mildly impaired short-term recall and word retrieval; 2.) mild dysarthria characterized by L facial weakness with impaired articulatory precision negatively impacting intelligibility at the se ntence level; and 3.) mild-moderate oral dysphagia and suspected mild pharyngeal dysphagia characterized by L facial weakness with mild L sided pocketing with bite-sized solids, prolonged mastication, prolonged A-P transit time with all consistencies, and mildly delayed swallow initiation; no overt s/s aspiration on PO trials tested, thou pt does remain at risk for aspiration. Pt able to clear oral stasis with lingual sweep/liquid wash. Recommend diet of mechanical soft bite-sized solids and thin liquids; maintain aspiration precautions. Pt would benefit from speech and dysphagia tx for improved cognition and speech intelligiblity, swallow function, diet tolerance, compensatory strategy training, and diet advancement as appropriate. Plan: Continue Dysphagia Therapy, Continue Speech/Language Therapy Frequency: 3-5 times per week Duration: 1 week Goals/Timeframe: Please see progress note dated 07/23/18 for updated goals/POC Recommendations: -Continue speech and dysphagia tx 3-5x/week. -Bite sized solids/thin liquids - Provider Therapist: Prema Vasquez License Number: [id number] Recreational Therapy - Participation Participation: Participates in Individual and/or Group Sessions - Attendance Attendance: 3-5 times per week - Activities Leisure Activities: Cards and Games - Socialization Level of Socialization: Initiates/interacts freely with care givers and peer - Diversional Time Diversional Time: television, word searches in room - Assessment Assessment/Plan: Pt is agreeable to participate in 1:1 and [facility]. Pt receives daily room visits for social support and encourgement to participate in sessions. Pt enjoyed participating in bingo task with peers and oriented to 5 second rule task and provided with word search tasks to complete during her free time. Pt requires extended time to complete tasks. Pt will continue to benefit from participating in recreation therapy sessions throughout her stay on unit. Problems Currently Limiting Participation: decrease leisure awareness level, visual deficits, weakness, decrease activity tolerance level Goals and Time Frame: Pt will be encouraged to participate in 1:1 and group recreation therapy sessions 3-5x week to improve activity tolerance level, leisure awareness level, and arousal level by date of discharge. - Provider Therapist: Melvi Hyde Nutrition - Current Diet Current Diet/Supplement/Feedings: 2 gram Na advanced bite size thin liquids ensure plus 8 ounces 2 per day. (700 kcal and 26 grams of protein) - Appetite Percent Meal Consumed: 50-74% - Assessment/Goals/Time Frame Assessments/Goals/Time Frame: Pt at high nutritional risk. goal: Patient will consume 75% of their meals within 2-3 days. Follow-up due on 07/25/2018 - Provider Provider: Lissa Prince Case Management - Psychosocial Assessment Support Systems: Soumya Rico (daughter) - [phone] Psychological Interventions/Needs: Patient is AAOx3 and able to verbalize needs Discharge Concerns: Patient lives alone and has two flights of stairs to navigate to her apartment Patient/Family Meeting: CM met with patient and rehab team Intervention/Goal/Outcome: 1. Goal: Supervision 2. Plan: home with VNS and family support 3. DME needs 4. f/u appts 5. continued emotional support - Discharge Plan Discharge Plan: Home with services Home Services: [facility] - Provider Provider: Suly Hernandez License Number: [id number] Rehabilitation Plan - Treatment Plan Treatment Plan: Physical Therapy, Occupational Therapy, Speech, Dietary, Patient/Family Education - Recommendation Recommendation: Physical Therapy, Occupational Therapy, Speech, Dietary - Discharge Plan Discharge to: Home (07/31)
[2018-07-26] MEDS: Levothyroxine 50 MCG TAB PO SCH (06:05)
[2018-07-26] MEDS: Pantoprazole 40 mg EC Tab PO SCH (06:05)
[2018-07-26] MEDS: Insulin Lispro (humaLOG) 100 Units/ml Inj SC SCH (06:30)
[2018-07-26] MEDS: Artificial Tears Opht Soln OU SCH ×4 (08:06→21:10)
[2018-07-26] MEDS: Aspirin 325 mg EC Tablets PO SCH (08:07)
[2018-07-26] MEDS: Lidocaine 5% Patch TD SCH (08:08)
[2018-07-26] MEDS: Ranolazine 500 mg Extended Release Tablets PO SCH ×2 (08:09→17:49)
[2018-07-26] MEDS: Multivitamin With Minerals Tab PO SCH (08:09)
--- NOTE | 2018-07-26 12:25 | CP.PCM.PN ---
Subjective - Date & Time of Evaluation Date of Evaluation: 07/25/18 Objective - Vital Signs/Intake and Output Vital Signs (last 24 hours): Temp Pulse Resp BP Pulse Ox 98.2 F 95 H 18 108/68 95 07/26/18 08:20 07/26/18 08:20 07/26/18 08:20 07/26/18 08:20 07/26/18 08:20 - Medications Medications: Current Medications Acetaminophen (Tylenol 325mg Tab) 650 mg PO Q6 PRN PRN Reason: Pain, Mild (1-3) Last Admin: 07/26/18 08:05 Dose: 650 mg Albuterol/Ipratropium (Duoneb 3 Mg/0.5 Mg (3 Ml) Ud) 3 ml INH RQ6 PRN PRN Reason: Shortness of Breath Alprazolam (Xanax) 0.5 mg PO Q4 PRN PRN Reason: Anxiety Last Admin: 07/25/18 21:43 Dose: 0.5 mg Artificial Tears (Artificial Tears) 1 drop OU QID [facility] Last Admin: 07/26/18 08:06 Dose: 1 drop Aspirin (Ecotrin) 325 mg PO DAILY [facility] Last Admin: 07/26/18 08:07 Dose: 325 mg Atorvastatin Calcium (Lipitor) 20 mg PO HS [facility] Last Admin: 07/25/18 21:14 Dose: 20 mg Bisacodyl (Dulcolax) 10 mg [place] DAILY PRN PRN Reason: Constipation Last Admin: 07/24/18 07:10 Dose: 10 mg Diphenhydramine HCl (Benadryl) 25 mg PO Q8 PRN PRN Reason: Itching / Pruritus Docusate Sodium (Colace) 100 mg PO BID [facility] Last Admin: 07/26/18 08:06 Dose: 100 mg Folic Acid (Folic Acid) 1 mg PO DAILY [facility] Last Admin: 07/26/18 08:07 Dose: 1 mg Gabapentin (Neurontin) 300 mg PO Q8@0600,1400,2200 [facility] Last Admin: 07/26/18 06:05 Dose: 300 mg Guaifenesin (Robitussin) 200 mg PO Q4 PRN PRN Reason: for congestion Hamamelis (Tucks) 1 pad TP Q4 PRN PRN Reason: rectral discomfort Heparin Sodium (Porcine) (Heparin) 5,000 units SC Q8 [facility]; Protocol Last Admin: 07/26/18 06:05 Dose: 5,000 units Home Med (Ibandronate Sodium [Boniva]) 150 mg PO Q30D [facility] Last Admin: 07/23/18 06:33 Dose: 150 mg Hydroxychloroquine Sulfate (Plaquenil) 200 mg PO DAILY [facility]; Protocol Last Admin: 07/26/18 08:10 Dose: 200 mg Insulin Human Lispro (Humalog) 0 units SC ACB [facility]; Protocol Last Admin: 07/26/18 06:30 Dose: Not Given Lactulose (Enulose) 10 gm PO DAILY PRN PRN Reason: Constipation Last Admin: 07/24/18 16:21 Dose: 10 gm Levothyroxine Sodium (Synthroid) 50 mcg PO DAILY@0630 [facility] Last Admin: 07/26/18 06:05 Dose: 50 mcg Lidocaine (Lidoderm) 1 ea TD DAILY [facility] Last Admin: 07/26/18 08:08 Dose: 1 ea Metoprolol Tartrate (Lopressor) 25 mg PO Q12 [facility] Last Admin: 07/26/18 08:11 Dose: 25 mg Multivitamins/Minerals (Therapeutic-M Tab) 1 tab PO DAILY [facility] Last Admin: 07/26/18 08:09 Dose: 1 tab Mupirocin (Bactroban Ointment) 1 applic TOP BID [facility] Last Admin: 07/25/18 16:31 Dose: 1 applic Ondansetron HCl (Zofran Tab) 8 mg PO Q8 PRN PRN Reason: Nausea/Vomiting Pantoprazole Sodium (Protonix Ec Tab) 40 mg PO 0600 [facility] Last Admin: 07/26/18 06:05 Dose: 40 mg Prednisone (Prednisone Tab) 10 mg PO DAILY [facility] Last Admin: 07/26/18 08:09 Dose: 10 mg Ranolazine (Ranexa) 500 mg PO BID [facility] Last Admin: 07/26/18 08:09 Dose: 500 mg Assessment and Plan (1) Pericardial effusion with cardiac tamponade Status: Acute (2) CVA (cerebral vascular accident) Status: Acute (3) Hyperlipidemia Status: Chronic (4) Hypertension Status: Chronic (5) Pancreatitis Status: Acute (6) SLE (systemic lupus erythematosus) Status: Acute
--- NOTE | 2018-07-26 12:26 | CP.PCM.PN ---
Subjective - Date & Time of Evaluation Date of Evaluation: 07/26/18 Time of Evaluation: 21:40 Objective - Vital Signs/Intake and Output Vital Signs (last 24 hours): Temp Pulse Resp BP Pulse Ox 98.2 F 95 H 18 108/68 95 07/26/18 08:20 07/26/18 08:20 07/26/18 08:20 07/26/18 08:20 07/26/18 08:20 - Medications Medications: Current Medications Acetaminophen (Tylenol 325mg Tab) 650 mg PO Q6 PRN PRN Reason: Pain, Mild (1-3) Last Admin: 07/26/18 08:05 Dose: 650 mg Albuterol/Ipratropium (Duoneb 3 Mg/0.5 Mg (3 Ml) Ud) 3 ml INH RQ6 PRN PRN Reason: Shortness of Breath Alprazolam (Xanax) 0.5 mg PO Q4 PRN PRN Reason: Anxiety Last Admin: 07/25/18 21:43 Dose: 0.5 mg Artificial Tears (Artificial Tears) 1 drop OU QID [facility] Last Admin: 07/26/18 08:06 Dose: 1 drop Aspirin (Ecotrin) 325 mg PO DAILY [facility] Last Admin: 07/26/18 08:07 Dose: 325 mg Atorvastatin Calcium (Lipitor) 20 mg PO HS [facility] Last Admin: 07/25/18 21:14 Dose: 20 mg Bisacodyl (Dulcolax) 10 mg [place] DAILY PRN PRN Reason: Constipation Last Admin: 07/24/18 07:10 Dose: 10 mg Diphenhydramine HCl (Benadryl) 25 mg PO Q8 PRN PRN Reason: Itching / Pruritus Docusate Sodium (Colace) 100 mg PO BID [facility] Last Admin: 07/26/18 08:06 Dose: 100 mg Folic Acid (Folic Acid) 1 mg PO DAILY [facility] Last Admin: 07/26/18 08:07 Dose: 1 mg Gabapentin (Neurontin) 300 mg PO Q8@0600,1400,2200 [facility] Last Admin: 07/26/18 06:05 Dose: 300 mg Guaifenesin (Robitussin) 200 mg PO Q4 PRN PRN Reason: for congestion Hamamelis (Tucks) 1 pad TP Q4 PRN PRN Reason: rectral discomfort Heparin Sodium (Porcine) (Heparin) 5,000 units SC Q8 [facility]; Protocol Last Admin: 07/26/18 06:05 Dose: 5,000 units Home Med (Ibandronate Sodium [Boniva]) 150 mg PO Q30D [facility] Last Admin: 07/23/18 06:33 Dose: 150 mg Hydroxychloroquine Sulfate (Plaquenil) 200 mg PO DAILY [facility]; Protocol Last Admin: 07/26/18 08:10 Dose: 200 mg Insulin Human Lispro (Humalog) 0 units SC ACB [facility]; Protocol Last Admin: 07/26/18 06:30 Dose: Not Given Lactulose (Enulose) 10 gm PO DAILY PRN PRN Reason: Constipation Last Admin: 07/24/18 16:21 Dose: 10 gm Levothyroxine Sodium (Synthroid) 50 mcg PO DAILY@0630 [facility] Last Admin: 07/26/18 06:05 Dose: 50 mcg Lidocaine (Lidoderm) 1 ea TD DAILY [facility] Last Admin: 07/26/18 08:08 Dose: 1 ea Metoprolol Tartrate (Lopressor) 25 mg PO Q12 [facility] Last Admin: 07/26/18 08:11 Dose: 25 mg Multivitamins/Minerals (Therapeutic-M Tab) 1 tab PO DAILY [facility] Last Admin: 07/26/18 08:09 Dose: 1 tab Mupirocin (Bactroban Ointment) 1 applic TOP BID [facility] Last Admin: 07/25/18 16:31 Dose: 1 applic Ondansetron HCl (Zofran Tab) 8 mg PO Q8 PRN PRN Reason: Nausea/Vomiting Pantoprazole Sodium (Protonix Ec Tab) 40 mg PO 0600 [facility] Last Admin: 07/26/18 06:05 Dose: 40 mg Prednisone (Prednisone Tab) 10 mg PO DAILY [facility] Last Admin: 07/26/18 08:09 Dose: 10 mg Ranolazine (Ranexa) 500 mg PO BID [facility] Last Admin: 07/26/18 08:09 Dose: 500 mg Assessment and Plan (1) Pericardial effusion with cardiac tamponade Status: Acute (2) CVA (cerebral vascular accident) Status: Acute (3) Hyperlipidemia Status: Chronic (4) Hypertension Status: Chronic (5) Pancreatitis Status: Acute (6) SLE (systemic lupus erythematosus) Status: Acute
[2018-07-27] MEDS: Pantoprazole 40 mg EC Tab PO SCH (06:12)
[2018-07-27] MEDS: Levothyroxine 50 MCG TAB PO SCH (06:12)
[2018-07-27 06:33] LABS: BASO % 0.9 % (0.0-2.0); EOS # 0.1 K/uL (0.0-0.7); HEMOGLOBIN 10.5 g/dL (12.0-16.0); LYMPH # 2.1 K/uL (1.0-4.3); LYMPH % 49.4 % (20.0-40.0); MEAN CELL VOLUME 89.8 fl (81.0-99.0); MEAN CORPUSCULAR HGB CONC 33.4 g/dL (33.0-37.0); MONO # 0.4 K/uL (0.0-0.8); MONO % 10.4 % (0.0-10.0); NEUT # 1.6 K/uL (1.8-7.0); NEUT % 37.3 % (50.0-75.0); NRBC % 0.1 % (0.0-0.0); RBC 3.5 Mil/uL (3.80-5.20); WHITE BLOOD COUNT 4.3 K/uL (4.8-10.8)
[2018-07-27 06:43] LABS: BLOOD UREA NITROGEN 9 mg/dl (7-17); CALCIUM 8.6 mg/dL (8.4-10.2); GFR NON-AFRICAN AMERICAN > 60
[2018-07-27] MEDS: Insulin Lispro (humaLOG) 100 Units/ml Inj SC SCH (07:09)
[2018-07-27] MEDS: Artificial Tears Opht Soln OU SCH ×4 (09:03→21:29)
[2018-07-27] MEDS: Ranolazine 500 mg Extended Release Tablets PO SCH ×2 (09:04→17:29)
[2018-07-27] MEDS: Multivitamin With Minerals Tab PO SCH (09:06)
[2018-07-27] MEDS: Aspirin 325 mg EC Tablets PO SCH (09:07)
[2018-07-27] MEDS: Lidocaine 5% Patch TD SCH (09:07)
--- NOTE | 2018-07-27 14:05 | CP.PCM.PN ---
Subjective - Date & Time of Evaluation Date of Evaluation: 07/27/18 Time of Evaluation: 12:00 - Subjective Subjective: patient is doing well, no acute complaints at present Objective - Vital Signs/Intake and Output Vital Signs (last 24 hours): Temp Pulse Resp BP Pulse Ox 98.2 F 94 H 18 122/64 100 07/27/18 08:08 07/27/18 09:05 07/27/18 08:08 07/27/18 09:05 07/27/18 08:08 - Medications Medications: Current Medications Acetaminophen (Tylenol 325mg Tab) 650 mg PO Q6 PRN PRN Reason: Pain, Mild (1-3) Last Admin: 07/26/18 08:05 Dose: 650 mg Albuterol/Ipratropium (Duoneb 3 Mg/0.5 Mg (3 Ml) Ud) 3 ml INH RQ6 PRN PRN Reason: Shortness of Breath Alprazolam (Xanax) 0.5 mg PO Q4 PRN PRN Reason: Anxiety Last Admin: 07/26/18 22:54 Dose: 0.5 mg Artificial Tears (Artificial Tears) 1 drop OU QID [facility] Last Admin: 07/27/18 12:51 Dose: 1 drop Aspirin (Ecotrin) 325 mg PO DAILY [facility] Last Admin: 07/27/18 09:07 Dose: 325 mg Atorvastatin Calcium (Lipitor) 20 mg PO HS [facility] Last Admin: 07/26/18 21:11 Dose: 20 mg Bisacodyl (Dulcolax) 10 mg [place] DAILY PRN PRN Reason: Constipation Last Admin: 07/24/18 07:10 Dose: 10 mg Diphenhydramine HCl (Benadryl) 25 mg PO Q8 PRN PRN Reason: Itching / Pruritus Docusate Sodium (Colace) 100 mg PO BID [facility] Last Admin: 07/27/18 09:04 Dose: 100 mg Folic Acid (Folic Acid) 1 mg PO DAILY [facility] Last Admin: 07/27/18 09:07 Dose: 1 mg Gabapentin (Neurontin) 300 mg PO Q8@0600,1400,2200 [facility] Last Admin: 07/27/18 13:21 Dose: 300 mg Guaifenesin (Robitussin) 200 mg PO Q4 PRN PRN Reason: for congestion Hamamelis (Tucks) 1 pad TP Q4 PRN PRN Reason: rectral discomfort Heparin Sodium (Porcine) (Heparin) 5,000 units SC Q8 [facility]; Protocol Last Admin: 07/27/18 13:20 Dose: 5,000 units Home Med (Ibandronate Sodium [Boniva]) 150 mg PO Q30D [facility] Last Admin: 07/23/18 06:33 Dose: 150 mg Hydroxychloroquine Sulfate (Plaquenil) 200 mg PO DAILY [facility]; Protocol Last Admin: 07/27/18 09:08 Dose: 200 mg Insulin Human Lispro (Humalog) 0 units SC ACB [facility]; Protocol Last Admin: 07/27/18 07:09 Dose: Not Given Lactulose (Enulose) 10 gm PO DAILY PRN PRN Reason: Constipation Last Admin: 07/24/18 16:21 Dose: 10 gm Levothyroxine Sodium (Synthroid) 50 mcg PO DAILY@0630 [facility] Last Admin: 07/27/18 06:12 Dose: 50 mcg Lidocaine (Lidoderm) 1 ea TD DAILY [facility] Last Admin: 07/27/18 09:07 Dose: 1 ea Metoprolol Tartrate (Lopressor) 25 mg PO Q12 [facility] Last Admin: 07/27/18 09:05 Dose: 25 mg Multivitamins/Minerals (Therapeutic-M Tab) 1 tab PO DAILY [facility] Last Admin: 07/27/18 09:06 Dose: 1 tab Mupirocin (Bactroban Ointment) 1 applic TOP BID [facility] Last Admin: 07/27/18 09:03 Dose: 1 applic Ondansetron HCl (Zofran Tab) 8 mg PO Q8 PRN PRN Reason: Nausea/Vomiting Pantoprazole Sodium (Protonix Ec Tab) 40 mg PO 0600 [facility] Last Admin: 07/27/18 06:12 Dose: 40 mg Prednisone (Prednisone Tab) 10 mg PO DAILY [facility] Last Admin: 07/27/18 09:05 Dose: 10 mg Ranolazine (Ranexa) 500 mg PO BID [facility] Last Admin: 07/27/18 09:04 Dose: 500 mg - Labs Labs: 07/27/18 05:40 07/27/18 05:40 - Constitutional Appears: Well - Head Exam Head Exam: ATRAUMATIC, NORMAL INSPECTION, NORMOCEPHALIC - Eye Exam Eye Exam: EOMI, Normal appearance, PERRL Pupil Exam: NORMAL ACCOMODATION - ENT Exam ENT Exam: Mucous Membranes Moist, Normal Exam - Neck Exam Neck Exam: Full ROM, Normal Inspection - Respiratory Exam Respiratory Exam: Clear to Ausculation Bilateral, NORMAL BREATHING PATTERN - Cardiovascular Exam Cardiovascular Exam: REGULAR RHYTHM - GI/Abdominal Exam GI & Abdominal Exam: Normal Bowel Sounds - Rectal Exam Rectal Exam: NORMAL INSPECTION - Exam External exam: NORMAL EXTERNAL EXAM - Extremities Exam Extremities Exam: Full ROM, Normal Capillary Refill, Normal Inspection - Back Exam Back Exam: NORMAL INSPECTION - Neurological Exam Neurological Exam: Alert, Awake Neuro motor strength exam: Left Upper Extremity: 3, Right Upper Extremity: 3, Left Lower Extremity: 3, Right Lower Extremity: 3 - Psychiatric Exam Psychiatric exam: Normal Affect, Normal Mood - Skin Skin Exam: Dry, Intact Assessment and Plan (1) CVA (cerebral vascular accident) Assessment & Plan: plan for physical, occupational rec therapy for Dc 18 getting a shower today Status: Acute
[2018-07-28] MEDS: Levothyroxine 50 MCG TAB PO SCH (06:06)
[2018-07-28] MEDS: Pantoprazole 40 mg EC Tab PO SCH (06:06)
[2018-07-28] MEDS: Insulin Lispro (humaLOG) 100 Units/ml Inj SC SCH (06:47)
[2018-07-28] MEDS: Multivitamin With Minerals Tab PO SCH (08:15)
[2018-07-28] MEDS: Ranolazine 500 mg Extended Release Tablets PO SCH ×2 (08:15→16:00)
[2018-07-28] MEDS: Aspirin 325 mg EC Tablets PO SCH (08:16)
[2018-07-28] MEDS: Lidocaine 5% Patch TD SCH (08:17)
[2018-07-28] MEDS: Artificial Tears Opht Soln OU SCH ×4 (08:17→21:24)
--- NOTE | 2018-07-28 22:44 | CP.PCM.PN ---
Subjective - Date & Time of Evaluation Date of Evaluation: 07/27/18 Time of Evaluation: 19:55 Objective - Vital Signs/Intake and Output Vital Signs (last 24 hours): Temp Pulse Resp BP Pulse Ox 97.9 F 83 20 129/68 100 07/28/18 21:00 07/28/18 21:21 07/28/18 21:00 07/28/18 21:21 07/28/18 21:00 - Medications Medications: Current Medications Acetaminophen (Tylenol 325mg Tab) 650 mg PO Q6 PRN PRN Reason: Pain scale 1-10. Albuterol/Ipratropium (Duoneb 3 Mg/0.5 Mg (3 Ml) Ud) 3 ml INH RQ6 PRN PRN Reason: Shortness of Breath Alprazolam (Xanax) 0.5 mg PO Q4 PRN PRN Reason: Anxiety Last Admin: 07/28/18 21:28 Dose: 0.5 mg Artificial Tears (Artificial Tears) 1 drop OU QID [facility] Last Admin: 07/28/18 21:24 Dose: 1 drop Aspirin (Ecotrin) 325 mg PO DAILY [facility] Last Admin: 07/28/18 08:16 Dose: 325 mg Atorvastatin Calcium (Lipitor) 20 mg PO HS [facility] Last Admin: 07/28/18 21:23 Dose: 20 mg Bisacodyl (Dulcolax) 10 mg [place] DAILY PRN PRN Reason: Constipation Last Admin: 07/24/18 07:10 Dose: 10 mg Diphenhydramine HCl (Benadryl) 25 mg PO Q8 PRN PRN Reason: Itching / Pruritus Docusate Sodium (Colace) 100 mg PO BID [facility] Last Admin: 07/28/18 16:01 Dose: 100 mg Folic Acid (Folic Acid) 1 mg PO DAILY [facility] Last Admin: 07/28/18 08:16 Dose: 1 mg Gabapentin (Neurontin) 300 mg PO Q8@0600,1400,2200 [facility] Last Admin: 07/28/18 21:23 Dose: 300 mg Guaifenesin (Robitussin) 200 mg PO Q4 PRN PRN Reason: for congestion Hamamelis (Tucks) 1 pad TP Q4 PRN PRN Reason: rectral discomfort Heparin Sodium (Porcine) (Heparin) 5,000 units SC Q8 [facility]; Protocol Last Admin: 07/28/18 21:16 Dose: 5,000 units Home Med (Ibandronate Sodium [Boniva]) 150 mg PO Q30D [facility] Last Admin: 07/23/18 06:33 Dose: 150 mg Hydroxychloroquine Sulfate (Plaquenil) 200 mg PO DAILY [facility]; Protocol Last Admin: 07/28/18 08:16 Dose: 200 mg Insulin Human Lispro (Humalog) 0 units SC ACB [facility]; Protocol Last Admin: 07/28/18 06:47 Dose: Not Given Lactulose (Enulose) 10 gm PO DAILY PRN PRN Reason: Constipation Last Admin: 07/24/18 16:21 Dose: 10 gm Levothyroxine Sodium (Synthroid) 50 mcg PO DAILY@0630 [facility] Last Admin: 07/28/18 06:06 Dose: 50 mcg Lidocaine (Lidoderm) 1 ea TD DAILY [facility] Last Admin: 07/28/18 08:17 Dose: 1 ea Metoprolol Tartrate (Lopressor) 25 mg PO Q12 [facility] Last Admin: 07/28/18 21:21 Dose: 25 mg Multivitamins/Minerals (Therapeutic-M Tab) 1 tab PO DAILY [facility] Last Admin: 07/28/18 08:15 Dose: 1 tab Mupirocin (Bactroban Ointment) 1 applic TOP BID [facility] Last Admin: 07/28/18 16:01 Dose: 1 applic Ondansetron HCl (Zofran Tab) 8 mg PO Q8 PRN PRN Reason: Nausea/Vomiting Pantoprazole Sodium (Protonix Ec Tab) 40 mg PO 0600 [facility] Last Admin: 07/28/18 06:06 Dose: 40 mg Prednisone (Prednisone Tab) 10 mg PO DAILY [facility] Last Admin: 07/28/18 08:16 Dose: 10 mg Ranolazine (Ranexa) 500 mg PO BID [facility] Last Admin: 07/28/18 16:00 Dose: 500 mg - Labs Labs: 07/27/18 05:40 07/27/18 05:40 Assessment and Plan (1) Pericardial effusion with cardiac tamponade Status: Acute (2) CVA (cerebral vascular accident) Status: Acute (3) Hyperlipidemia Status: Chronic (4) Hypertension Status: Chronic (5) Pancreatitis Status: Acute (6) SLE (systemic lupus erythematosus) Status: Acute
--- NOTE | 2018-07-28 22:45 | CP.PCM.PN ---
Subjective - Date & Time of Evaluation Date of Evaluation: 07/28/18 Time of Evaluation: 19:10 Objective - Vital Signs/Intake and Output Vital Signs (last 24 hours): Temp Pulse Resp BP Pulse Ox 97.9 F 83 20 129/68 100 07/28/18 21:00 07/28/18 21:21 07/28/18 21:00 07/28/18 21:21 07/28/18 21:00 - Medications Medications: Current Medications Acetaminophen (Tylenol 325mg Tab) 650 mg PO Q6 PRN PRN Reason: Pain scale 1-10. Albuterol/Ipratropium (Duoneb 3 Mg/0.5 Mg (3 Ml) Ud) 3 ml INH RQ6 PRN PRN Reason: Shortness of Breath Alprazolam (Xanax) 0.5 mg PO Q4 PRN PRN Reason: Anxiety Last Admin: 07/28/18 21:28 Dose: 0.5 mg Artificial Tears (Artificial Tears) 1 drop OU QID [facility] Last Admin: 07/28/18 21:24 Dose: 1 drop Aspirin (Ecotrin) 325 mg PO DAILY [facility] Last Admin: 07/28/18 08:16 Dose: 325 mg Atorvastatin Calcium (Lipitor) 20 mg PO HS [facility] Last Admin: 07/28/18 21:23 Dose: 20 mg Bisacodyl (Dulcolax) 10 mg [place] DAILY PRN PRN Reason: Constipation Last Admin: 07/24/18 07:10 Dose: 10 mg Diphenhydramine HCl (Benadryl) 25 mg PO Q8 PRN PRN Reason: Itching / Pruritus Docusate Sodium (Colace) 100 mg PO BID [facility] Last Admin: 07/28/18 16:01 Dose: 100 mg Folic Acid (Folic Acid) 1 mg PO DAILY [facility] Last Admin: 07/28/18 08:16 Dose: 1 mg Gabapentin (Neurontin) 300 mg PO Q8@0600,1400,2200 [facility] Last Admin: 07/28/18 21:23 Dose: 300 mg Guaifenesin (Robitussin) 200 mg PO Q4 PRN PRN Reason: for congestion Hamamelis (Tucks) 1 pad TP Q4 PRN PRN Reason: rectral discomfort Heparin Sodium (Porcine) (Heparin) 5,000 units SC Q8 [facility]; Protocol Last Admin: 07/28/18 21:16 Dose: 5,000 units Home Med (Ibandronate Sodium [Boniva]) 150 mg PO Q30D [facility] Last Admin: 07/23/18 06:33 Dose: 150 mg Hydroxychloroquine Sulfate (Plaquenil) 200 mg PO DAILY [facility]; Protocol Last Admin: 07/28/18 08:16 Dose: 200 mg Insulin Human Lispro (Humalog) 0 units SC ACB [facility]; Protocol Last Admin: 07/28/18 06:47 Dose: Not Given Lactulose (Enulose) 10 gm PO DAILY PRN PRN Reason: Constipation Last Admin: 07/24/18 16:21 Dose: 10 gm Levothyroxine Sodium (Synthroid) 50 mcg PO DAILY@0630 [facility] Last Admin: 07/28/18 06:06 Dose: 50 mcg Lidocaine (Lidoderm) 1 ea TD DAILY [facility] Last Admin: 07/28/18 08:17 Dose: 1 ea Metoprolol Tartrate (Lopressor) 25 mg PO Q12 [facility] Last Admin: 07/28/18 21:21 Dose: 25 mg Multivitamins/Minerals (Therapeutic-M Tab) 1 tab PO DAILY [facility] Last Admin: 07/28/18 08:15 Dose: 1 tab Mupirocin (Bactroban Ointment) 1 applic TOP BID [facility] Last Admin: 07/28/18 16:01 Dose: 1 applic Ondansetron HCl (Zofran Tab) 8 mg PO Q8 PRN PRN Reason: Nausea/Vomiting Pantoprazole Sodium (Protonix Ec Tab) 40 mg PO 0600 [facility] Last Admin: 07/28/18 06:06 Dose: 40 mg Prednisone (Prednisone Tab) 10 mg PO DAILY [facility] Last Admin: 07/28/18 08:16 Dose: 10 mg Ranolazine (Ranexa) 500 mg PO BID [facility] Last Admin: 07/28/18 16:00 Dose: 500 mg - Labs Labs: 07/27/18 05:40 07/27/18 05:40 Assessment and Plan (1) Pericardial effusion with cardiac tamponade Status: Acute (2) CVA (cerebral vascular accident) Status: Acute (3) Hyperlipidemia Status: Chronic (4) Hypertension Status: Chronic (5) Pancreatitis Status: Acute (6) SLE (systemic lupus erythematosus) Status: Acute
[2018-07-29] MEDS: Levothyroxine 50 MCG TAB PO SCH (06:40)
[2018-07-29] MEDS: Pantoprazole 40 mg EC Tab PO SCH (06:41)
[2018-07-29] MEDS: Insulin Lispro (humaLOG) 100 Units/ml Inj SC SCH (06:41)
[2018-07-29] MEDS: Lidocaine 5% Patch TD SCH (08:38)
[2018-07-29] MEDS: Multivitamin With Minerals Tab PO SCH (08:40)
[2018-07-29] MEDS: Aspirin 325 mg EC Tablets PO SCH (08:40)
[2018-07-29] MEDS: Ranolazine 500 mg Extended Release Tablets PO SCH ×2 (08:40→16:11)
[2018-07-29] MEDS: Artificial Tears Opht Soln OU SCH ×4 (08:41→21:24)
[2018-07-30] MEDS: Pantoprazole 40 mg EC Tab PO SCH (06:50)
[2018-07-30] MEDS: Levothyroxine 50 MCG TAB PO SCH (06:51)
[2018-07-30] MEDS: Insulin Lispro (humaLOG) 100 Units/ml Inj SC SCH (06:51)
[2018-07-30] MEDS: Artificial Tears Opht Soln OU SCH ×4 (08:23→21:05)
[2018-07-30] MEDS: Multivitamin With Minerals Tab PO SCH (08:25)
[2018-07-30] MEDS: Lidocaine 5% Patch TD SCH (08:26)
[2018-07-30] MEDS: Aspirin 325 mg EC Tablets PO SCH (08:26)
[2018-07-30] MEDS: Ranolazine 500 mg Extended Release Tablets PO SCH ×2 (08:28→16:53)
[2018-07-30] MEDS: Enoxaparin 40 mg Syringe SC SCH (09:07)
[2018-07-30 09:32] LABS: HEMOGLOBIN 11.5 g/dL (12.0-16.0); MEAN CELL VOLUME 88.7 fl (81.0-99.0); MEAN CORPUSCULAR HEMOGLOBIN 29.5 pg (27.0-31.0); MEAN CORPUSCULAR HGB CONC 33.2 g/dL (33.0-37.0); RBC 3.89 Mil/uL (3.80-5.20); RED CELL DISTRIBUTION WIDTH 14.2 % (11.5-14.5)
[2018-07-30 09:46] LABS: BLOOD UREA NITROGEN 11 mg/dl (7-17); CALCIUM 9.6 mg/dL (8.4-10.2); GFR NON-AFRICAN AMERICAN > 60
--- NOTE | 2018-07-30 19:15 | CP.PCM.PN ---
Subjective - Date & Time of Evaluation Date of Evaluation: 07/29/18 Objective - Vital Signs/Intake and Output Vital Signs (last 24 hours): Temp Pulse Resp BP Pulse Ox 97.9 F 95 H 18 120/81 95 07/30/18 08:00 07/30/18 08:25 07/30/18 08:00 07/30/18 08:25 07/30/18 08:00 - Medications Medications: Current Medications Acetaminophen (Tylenol 325mg Tab) 650 mg PO Q6 PRN PRN Reason: Pain scale 1-10. Last Admin: 07/29/18 16:09 Dose: 650 mg Albuterol/Ipratropium (Duoneb 3 Mg/0.5 Mg (3 Ml) Ud) 3 ml INH RQ6 PRN PRN Reason: Shortness of Breath Alprazolam (Xanax) 0.5 mg PO Q4 PRN PRN Reason: Anxiety Last Admin: 07/29/18 22:20 Dose: 0.5 mg Artificial Tears (Artificial Tears) 1 drop OU QID [facility] Last Admin: 07/30/18 16:52 Dose: 1 drop Aspirin (Ecotrin) 325 mg PO DAILY [facility] Last Admin: 07/30/18 08:26 Dose: 325 mg Atorvastatin Calcium (Lipitor) 20 mg PO HS [facility] Last Admin: 07/29/18 21:23 Dose: 20 mg Bisacodyl (Dulcolax) 10 mg [place] DAILY PRN PRN Reason: Constipation Last Admin: 07/24/18 07:10 Dose: 10 mg Diphenhydramine HCl (Benadryl) 25 mg PO Q8 PRN PRN Reason: Itching / Pruritus Docusate Sodium (Colace) 100 mg PO BID [facility] Last Admin: 07/30/18 16:52 Dose: 100 mg Enoxaparin Sodium (Lovenox) 40 mg SC DAILY [facility]; Protocol Last Admin: 07/30/18 09:07 Dose: 40 mg Folic Acid (Folic Acid) 1 mg PO DAILY [facility] Last Admin: 07/30/18 08:25 Dose: 1 mg Gabapentin (Neurontin) 300 mg PO Q8@0600,1400,2200 [facility] Last Admin: 07/30/18 14:06 Dose: 300 mg Guaifenesin (Robitussin) 200 mg PO Q4 PRN PRN Reason: for congestion Hamamelis (Tucks) 1 pad TP Q4 PRN PRN Reason: rectral discomfort Home Med (Ibandronate Sodium [Boniva]) 150 mg PO Q30D [facility] Last Admin: 07/23/18 06:33 Dose: 150 mg Hydroxychloroquine Sulfate (Plaquenil) 200 mg PO DAILY [facility]; Protocol Last Admin: 07/30/18 08:27 Dose: 200 mg Insulin Human Lispro (Humalog) 0 units SC ACB [facility]; Protocol Last Admin: 07/30/18 06:51 Dose: Not Given Lactulose (Enulose) 10 gm PO DAILY PRN PRN Reason: Constipation Last Admin: 07/24/18 16:21 Dose: 10 gm Levothyroxine Sodium (Synthroid) 50 mcg PO DAILY@0630 [facility] Last Admin: 07/30/18 06:51 Dose: 50 mcg Lidocaine (Lidoderm) 1 ea TD DAILY [facility] Last Admin: 07/30/18 08:26 Dose: 1 ea Metoprolol Tartrate (Lopressor) 25 mg PO Q12 [facility] Last Admin: 07/30/18 08:25 Dose: 25 mg Multivitamins/Minerals (Therapeutic-M Tab) 1 tab PO DAILY [facility] Last Admin: 07/30/18 08:25 Dose: 1 tab Mupirocin (Bactroban Ointment) 1 applic TOP BID [facility] Last Admin: 07/30/18 16:52 Dose: 1 applic Ondansetron HCl (Zofran Tab) 8 mg PO Q8 PRN PRN Reason: Nausea/Vomiting Pantoprazole Sodium (Protonix Ec Tab) 40 mg PO 0600 [facility] Last Admin: 07/30/18 06:50 Dose: 40 mg Prednisone (Prednisone Tab) 10 mg PO DAILY [facility] Last Admin: 07/30/18 08:29 Dose: 10 mg Ranolazine (Ranexa) 500 mg PO BID [facility] Last Admin: 07/30/18 16:53 Dose: 500 mg - Labs Labs: 07/30/18 09:07 07/30/18 09:07 Assessment and Plan (1) Pericardial effusion with cardiac tamponade Status: Acute (2) CVA (cerebral vascular accident) Status: Acute (3) Hyperlipidemia Status: Chronic (4) Hypertension Status: Chronic (5) Pancreatitis Status: Acute (6) SLE (systemic lupus erythematosus) Status: Acute
--- NOTE | 2018-07-30 19:16 | CP.PCM.PN ---
Subjective - Date & Time of Evaluation Date of Evaluation: 07/30/18 Time of Evaluation: 10:30 Objective - Vital Signs/Intake and Output Vital Signs (last 24 hours): Temp Pulse Resp BP Pulse Ox 97.9 F 95 H 18 120/81 95 07/30/18 08:00 07/30/18 08:25 07/30/18 08:00 07/30/18 08:25 07/30/18 08:00 - Medications Medications: Current Medications Acetaminophen (Tylenol 325mg Tab) 650 mg PO Q6 PRN PRN Reason: Pain scale 1-10. Last Admin: 07/29/18 16:09 Dose: 650 mg Albuterol/Ipratropium (Duoneb 3 Mg/0.5 Mg (3 Ml) Ud) 3 ml INH RQ6 PRN PRN Reason: Shortness of Breath Alprazolam (Xanax) 0.5 mg PO Q4 PRN PRN Reason: Anxiety Last Admin: 07/29/18 22:20 Dose: 0.5 mg Artificial Tears (Artificial Tears) 1 drop OU QID [facility] Last Admin: 07/30/18 16:52 Dose: 1 drop Aspirin (Ecotrin) 325 mg PO DAILY [facility] Last Admin: 07/30/18 08:26 Dose: 325 mg Atorvastatin Calcium (Lipitor) 20 mg PO HS [facility] Last Admin: 07/29/18 21:23 Dose: 20 mg Bisacodyl (Dulcolax) 10 mg [place] DAILY PRN PRN Reason: Constipation Last Admin: 07/24/18 07:10 Dose: 10 mg Diphenhydramine HCl (Benadryl) 25 mg PO Q8 PRN PRN Reason: Itching / Pruritus Docusate Sodium (Colace) 100 mg PO BID [facility] Last Admin: 07/30/18 16:52 Dose: 100 mg Enoxaparin Sodium (Lovenox) 40 mg [place] DAILY [facility]; Protocol Last Admin: 07/30/18 09:07 Dose: 40 mg Folic Acid (Folic Acid) 1 mg PO DAILY [facility] Last Admin: 07/30/18 08:25 Dose: 1 mg Gabapentin (Neurontin) 300 mg PO Q8@0600,1400,2200 [facility] Last Admin: 07/30/18 14:06 Dose: 300 mg Guaifenesin (Robitussin) 200 mg PO Q4 PRN PRN Reason: for congestion Hamamelis (Tucks) 1 pad TP Q4 PRN PRN Reason: rectral discomfort Home Med (Ibandronate Sodium [Boniva]) 150 mg PO Q30D [facility] Last Admin: 07/23/18 06:33 Dose: 150 mg Hydroxychloroquine Sulfate (Plaquenil) 200 mg PO DAILY [facility]; Protocol Last Admin: 07/30/18 08:27 Dose: 200 mg Insulin Human Lispro (Humalog) 0 units SC ACB [facility]; Protocol Last Admin: 07/30/18 06:51 Dose: Not Given Lactulose (Enulose) 10 gm PO DAILY PRN PRN Reason: Constipation Last Admin: 07/24/18 16:21 Dose: 10 gm Levothyroxine Sodium (Synthroid) 50 mcg PO DAILY@0630 [facility] Last Admin: 07/30/18 06:51 Dose: 50 mcg Lidocaine (Lidoderm) 1 ea TD DAILY [facility] Last Admin: 07/30/18 08:26 Dose: 1 ea Metoprolol Tartrate (Lopressor) 25 mg PO Q12 [facility] Last Admin: 07/30/18 08:25 Dose: 25 mg Multivitamins/Minerals (Therapeutic-M Tab) 1 tab PO DAILY [facility] Last Admin: 07/30/18 08:25 Dose: 1 tab Mupirocin (Bactroban Ointment) 1 applic TOP BID [facility] Last Admin: 07/30/18 16:52 Dose: 1 applic Ondansetron HCl (Zofran Tab) 8 mg PO Q8 PRN PRN Reason: Nausea/Vomiting Pantoprazole Sodium (Protonix Ec Tab) 40 mg PO 0600 [facility] Last Admin: 07/30/18 06:50 Dose: 40 mg Prednisone (Prednisone Tab) 10 mg PO DAILY [facility] Last Admin: 07/30/18 08:29 Dose: 10 mg Ranolazine (Ranexa) 500 mg PO BID [facility] Last Admin: 07/30/18 16:53 Dose: 500 mg - Labs Labs: 07/30/18 09:07 07/30/18 09:07 Assessment and Plan (1) Pericardial effusion with cardiac tamponade Status: Acute (2) CVA (cerebral vascular accident) Status: Acute (3) Hyperlipidemia Status: Chronic (4) Hypertension Status: Chronic (5) Pancreatitis Status: Acute (6) SLE (systemic lupus erythematosus) Status: Acute
[2018-07-31] MEDS: Pantoprazole 40 mg EC Tab PO SCH (06:11)
[2018-07-31] MEDS: Levothyroxine 50 MCG TAB PO SCH (06:11)
[2018-07-31] MEDS: Insulin Lispro (humaLOG) 100 Units/ml Inj SC SCH (06:53)
[2018-07-31] MEDS: Lidocaine 5% Patch TD SCH (08:35)
[2018-07-31] MEDS: Artificial Tears Opht Soln OU SCH ×2 (08:35→14:13)
[2018-07-31] MEDS: Aspirin 325 mg EC Tablets PO SCH (08:36)
[2018-07-31] MEDS: Enoxaparin 40 mg Syringe SC SCH (08:36)
[2018-07-31] MEDS: Ranolazine 500 mg Extended Release Tablets PO SCH (08:36)
[2018-07-31] MEDS: Multivitamin With Minerals Tab PO SCH (08:36)
[2018-07-31 08:50] VITALS: BP 139/84; PULSE 91
[2018-07-31 08:51] VITALS: RESP 18; TEMP 97; O2SAT 96
--- NOTE | 2018-07-31 12:30 | CP.PCM.PCO ---
Assessment/Plan - Assessment/Plan Assessment (Free Text): Pt seen at bedside, offers no complains, excited to go home. States she needs Rx for all her meds Pt aaox3, heart S1S2, lungs clear, abdomen soft nontender, moving all extremities without difficulty. Discussed with Dr. Cabral, pt stable to be discharged. Pt to f/u with PMD Dr. Guadarrama in 1 week. All Rx given. - Consults Consult Orders: Consultations
--- NOTE | 2018-07-31 15:22 | CP.PCM.PN ---
Subjective - Date & Time of Evaluation Date of Evaluation: 07/31/18 Time of Evaluation: 12:00 - Subjective Subjective: patient is doing fine, claims at times some numbness tingling of left hand Objective - Vital Signs/Intake and Output Vital Signs (last 24 hours): Temp Pulse Resp BP Pulse Ox 97 F L 91 H 18 139/84 96 07/31/18 08:50 07/31/18 08:50 07/31/18 08:50 07/31/18 08:50 07/31/18 08:50 - Medications Medications: Current Medications Acetaminophen (Tylenol 325mg Tab) 650 mg PO Q6 PRN PRN Reason: Pain scale 1-10. Last Admin: 07/31/18 11:45 Dose: 650 mg Albuterol/Ipratropium (Duoneb 3 Mg/0.5 Mg (3 Ml) Ud) 3 ml INH RQ6 PRN PRN Reason: Shortness of Breath Alprazolam (Xanax) 0.5 mg PO Q4 PRN PRN Reason: Anxiety Last Admin: 07/30/18 22:13 Dose: 0.5 mg Artificial Tears (Artificial Tears) 1 drop OU QID [facility] Last Admin: 07/31/18 14:13 Dose: 1 drop Aspirin (Ecotrin) 325 mg PO DAILY [facility] Last Admin: 07/31/18 08:36 Dose: 325 mg Atorvastatin Calcium (Lipitor) 20 mg PO HS [facility] Last Admin: 07/30/18 21:06 Dose: 20 mg Bisacodyl (Dulcolax) 10 mg [place] DAILY PRN PRN Reason: Constipation Last Admin: 07/24/18 07:10 Dose: 10 mg Diphenhydramine HCl (Benadryl) 25 mg PO Q8 PRN PRN Reason: Itching / Pruritus Docusate Sodium (Colace) 100 mg PO BID [facility] Last Admin: 07/31/18 08:36 Dose: 100 mg Enoxaparin Sodium (Lovenox) 40 mg SC DAILY [facility]; Protocol Last Admin: 07/31/18 08:36 Dose: 40 mg Folic Acid (Folic Acid) 1 mg PO DAILY [facility] Last Admin: 07/31/18 08:36 Dose: 1 mg Gabapentin (Neurontin) 300 mg PO Q8@0600,1400,2200 [facility] Last Admin: 07/31/18 14:13 Dose: 300 mg Guaifenesin (Robitussin) 200 mg PO Q4 PRN PRN Reason: for congestion Hamamelis (Tucks) 1 pad TP Q4 PRN PRN Reason: rectral discomfort Home Med (Ibandronate Sodium [Boniva]) 150 mg PO Q30D [facility] Last Admin: 07/23/18 06:33 Dose: 150 mg Insulin Human Lispro (Humalog) 0 units SC ACB [facility]; Protocol Last Admin: 07/31/18 06:53 Dose: Not Given Lactulose (Enulose) 10 gm PO DAILY PRN PRN Reason: Constipation Last Admin: 07/24/18 16:21 Dose: 10 gm Levothyroxine Sodium (Synthroid) 50 mcg PO DAILY@0630 [facility] Last Admin: 07/31/18 06:11 Dose: 50 mcg Lidocaine (Lidoderm) 1 ea TD DAILY [facility] Last Admin: 07/31/18 08:35 Dose: 1 ea Metoprolol Tartrate (Lopressor) 25 mg PO Q12 [facility] Last Admin: 07/31/18 08:49 Dose: 25 mg Multivitamins/Minerals (Therapeutic-M Tab) 1 tab PO DAILY [facility] Last Admin: 07/31/18 08:36 Dose: 1 tab Mupirocin (Bactroban Ointment) 1 applic TOP BID [facility] Last Admin: 07/31/18 08:35 Dose: 1 applic Ondansetron HCl (Zofran Tab) 8 mg PO Q8 PRN PRN Reason: Nausea/Vomiting Pantoprazole Sodium (Protonix Ec Tab) 40 mg PO 0600 [facility] Last Admin: 07/31/18 06:11 Dose: 40 mg Prednisone (Prednisone Tab) 10 mg PO DAILY [facility] Last Admin: 07/31/18 08:37 Dose: 10 mg Ranolazine (Ranexa) 500 mg PO BID [facility] Last Admin: 07/31/18 08:36 Dose: 500 mg - Labs Labs: 07/30/18 09:07 07/30/18 09:07 - Constitutional Appears: Well - Head Exam Head Exam: ATRAUMATIC, NORMAL INSPECTION, NORMOCEPHALIC - Eye Exam Eye Exam: EOMI, Normal appearance, PERRL Pupil Exam: NORMAL ACCOMODATION - ENT Exam ENT Exam: Mucous Membranes Moist, Normal Exam - Neck Exam Neck Exam: Full ROM, Normal Inspection - Respiratory Exam Respiratory Exam: Clear to Ausculation Bilateral, NORMAL BREATHING PATTERN - Cardiovascular Exam Cardiovascular Exam: REGULAR RHYTHM - GI/Abdominal Exam GI & Abdominal Exam: Soft, Normal Bowel Sounds - Rectal Exam Rectal Exam: NORMAL INSPECTION - Exam External exam: NORMAL EXTERNAL EXAM - Extremities Exam Extremities Exam: Full ROM, Normal Capillary Refill, Normal Inspection - Back Exam Back Exam: NORMAL INSPECTION - Neurological Exam Neurological Exam: Alert, Awake Neuro motor strength exam: Left Upper Extremity: 3, Right Upper Extremity: 3, Left Lower Extremity: 3, Right Lower Extremity: 3 - Psychiatric Exam Psychiatric exam: Normal Affect, Normal Mood - Skin Skin Exam: Dry, Intact Assessment and Plan (1) CVA (cerebral vascular accident) Assessment & Plan: plan for physical, occupational rec nad speech therapy neurology to follow up regarding numbness tingling of thehand claims has it since 10 days off and on,neurology consult Status: Acute
--- NOTE | 2018-07-31 15:28 | CP.PCM.PN ---
Subjective - Date & Time of Evaluation Date of Evaluation: 07/31/18 Time of Evaluation: 13:00 - Subjective Subjective: no acute complaints at present, alert freindly Objective - Vital Signs/Intake and Output Vital Signs (last 24 hours): Temp Pulse Resp BP Pulse Ox 97 F L 91 H 18 139/84 96 07/31/18 08:50 07/31/18 08:50 07/31/18 08:50 07/31/18 08:50 07/31/18 08:50 - Medications Medications: Current Medications Acetaminophen (Tylenol 325mg Tab) 650 mg PO Q6 PRN PRN Reason: Pain scale 1-10. Last Admin: 07/31/18 11:45 Dose: 650 mg Albuterol/Ipratropium (Duoneb 3 Mg/0.5 Mg (3 Ml) Ud) 3 ml INH RQ6 PRN PRN Reason: Shortness of Breath Alprazolam (Xanax) 0.5 mg PO Q4 PRN PRN Reason: Anxiety Last Admin: 07/30/18 22:13 Dose: 0.5 mg Artificial Tears (Artificial Tears) 1 drop OU QID [facility] Last Admin: 07/31/18 14:13 Dose: 1 drop Aspirin (Ecotrin) 325 mg PO DAILY [facility] Last Admin: 07/31/18 08:36 Dose: 325 mg Atorvastatin Calcium (Lipitor) 20 mg PO HS [facility] Last Admin: 07/30/18 21:06 Dose: 20 mg Bisacodyl (Dulcolax) 10 mg [place] DAILY PRN PRN Reason: Constipation Last Admin: 07/24/18 07:10 Dose: 10 mg Diphenhydramine HCl (Benadryl) 25 mg PO Q8 PRN PRN Reason: Itching / Pruritus Docusate Sodium (Colace) 100 mg PO BID [facility] Last Admin: 07/31/18 08:36 Dose: 100 mg Enoxaparin Sodium (Lovenox) 40 mg SC DAILY [facility]; Protocol Last Admin: 07/31/18 08:36 Dose: 40 mg Folic Acid (Folic Acid) 1 mg PO DAILY [facility] Last Admin: 07/31/18 08:36 Dose: 1 mg Gabapentin (Neurontin) 300 mg PO Q8@0600,1400,2200 [facility] Last Admin: 07/31/18 14:13 Dose: 300 mg Guaifenesin (Robitussin) 200 mg PO Q4 PRN PRN Reason: for congestion Hamamelis (Tucks) 1 pad TP Q4 PRN PRN Reason: rectral discomfort Home Med (Ibandronate Sodium [Boniva]) 150 mg PO Q30D [facility] Last Admin: 07/23/18 06:33 Dose: 150 mg Insulin Human Lispro (Humalog) 0 units SC ACB [facility]; Protocol Last Admin: 07/31/18 06:53 Dose: Not Given Lactulose (Enulose) 10 gm PO DAILY PRN PRN Reason: Constipation Last Admin: 07/24/18 16:21 Dose: 10 gm Levothyroxine Sodium (Synthroid) 50 mcg PO DAILY@0630 [facility] Last Admin: 07/31/18 06:11 Dose: 50 mcg Lidocaine (Lidoderm) 1 ea TD DAILY [facility] Last Admin: 07/31/18 08:35 Dose: 1 ea Metoprolol Tartrate (Lopressor) 25 mg PO Q12 [facility] Last Admin: 07/31/18 08:49 Dose: 25 mg Multivitamins/Minerals (Therapeutic-M Tab) 1 tab PO DAILY [facility] Last Admin: 07/31/18 08:36 Dose: 1 tab Mupirocin (Bactroban Ointment) 1 applic TOP BID [facility] Last Admin: 07/31/18 08:35 Dose: 1 applic Ondansetron HCl (Zofran Tab) 8 mg PO Q8 PRN PRN Reason: Nausea/Vomiting Pantoprazole Sodium (Protonix Ec Tab) 40 mg PO 0600 [facility] Last Admin: 07/31/18 06:11 Dose: 40 mg Prednisone (Prednisone Tab) 10 mg PO DAILY [facility] Last Admin: 07/31/18 08:37 Dose: 10 mg Ranolazine (Ranexa) 500 mg PO BID [facility] Last Admin: 07/31/18 08:36 Dose: 500 mg - Labs Labs: 07/30/18 09:07 07/30/18 09:07 - Constitutional Appears: Well - Head Exam Head Exam: ATRAUMATIC, NORMAL INSPECTION, NORMOCEPHALIC - Eye Exam Eye Exam: EOMI, Normal appearance, PERRL Pupil Exam: NORMAL ACCOMODATION - ENT Exam ENT Exam: Mucous Membranes Moist, Normal Exam - Neck Exam Neck Exam: Full ROM, Normal Inspection - Respiratory Exam Respiratory Exam: Clear to Ausculation Bilateral, NORMAL BREATHING PATTERN - Cardiovascular Exam Cardiovascular Exam: REGULAR RHYTHM - GI/Abdominal Exam GI & Abdominal Exam: Soft, Normal Bowel Sounds - Rectal Exam Rectal Exam: NORMAL INSPECTION - Exam External exam: NORMAL EXTERNAL EXAM - Extremities Exam Extremities Exam: Full ROM, Normal Capillary Refill, Normal Inspection - Back Exam Back Exam: NORMAL INSPECTION - Neurological Exam Neurological Exam: Alert Neuro motor strength exam: Left Upper Extremity: 3, Right Upper Extremity: 3, Left Lower Extremity: 3, Right Lower Extremity: 3 - Skin Skin Exam: Dry Assessment and Plan (1) CVA (cerebral vascular accident) Assessment & Plan: plan for physical, occupational therapy for discharge today, BP111/77 discussed Dc planning with patient and family Status: Acute
--- NOTE | 2018-07-31 15:32 | CP.PCM.PN ---
Subjective - Date & Time of Evaluation Date of Evaluation: 07/29/18 Time of Evaluation: 20:00 - Subjective Subjective: no acute complaints at present Objective - Vital Signs/Intake and Output Vital Signs (last 24 hours): Temp Pulse Resp BP Pulse Ox 97 F L 91 H 18 139/84 96 07/31/18 08:50 07/31/18 08:50 07/31/18 08:50 07/31/18 08:50 07/31/18 08:50 - Medications Medications: Current Medications Acetaminophen (Tylenol 325mg Tab) 650 mg PO Q6 PRN PRN Reason: Pain scale 1-10. Last Admin: 07/31/18 11:45 Dose: 650 mg Albuterol/Ipratropium (Duoneb 3 Mg/0.5 Mg (3 Ml) Ud) 3 ml INH RQ6 PRN PRN Reason: Shortness of Breath Alprazolam (Xanax) 0.5 mg PO Q4 PRN PRN Reason: Anxiety Last Admin: 07/30/18 22:13 Dose: 0.5 mg Artificial Tears (Artificial Tears) 1 drop OU QID [facility] Last Admin: 07/31/18 14:13 Dose: 1 drop Aspirin (Ecotrin) 325 mg PO DAILY [facility] Last Admin: 07/31/18 08:36 Dose: 325 mg Atorvastatin Calcium (Lipitor) 20 mg PO HS [facility] Last Admin: 07/30/18 21:06 Dose: 20 mg Bisacodyl (Dulcolax) 10 mg [place] DAILY PRN PRN Reason: Constipation Last Admin: 07/24/18 07:10 Dose: 10 mg Diphenhydramine HCl (Benadryl) 25 mg PO Q8 PRN PRN Reason: Itching / Pruritus Docusate Sodium (Colace) 100 mg PO BID [facility] Last Admin: 07/31/18 08:36 Dose: 100 mg Enoxaparin Sodium (Lovenox) 40 mg SC DAILY [facility]; Protocol Last Admin: 07/31/18 08:36 Dose: 40 mg Folic Acid (Folic Acid) 1 mg PO DAILY [facility] Last Admin: 07/31/18 08:36 Dose: 1 mg Gabapentin (Neurontin) 300 mg PO Q8@0600,1400,2200 [facility] Last Admin: 07/31/18 14:13 Dose: 300 mg Guaifenesin (Robitussin) 200 mg PO Q4 PRN PRN Reason: for congestion Hamamelis (Tucks) 1 pad TP Q4 PRN PRN Reason: rectral discomfort Home Med (Ibandronate Sodium [Boniva]) 150 mg PO Q30D [facility] Last Admin: 07/23/18 06:33 Dose: 150 mg Insulin Human Lispro (Humalog) 0 units SC ACB [facility]; Protocol Last Admin: 07/31/18 06:53 Dose: Not Given Lactulose (Enulose) 10 gm PO DAILY PRN PRN Reason: Constipation Last Admin: 07/24/18 16:21 Dose: 10 gm Levothyroxine Sodium (Synthroid) 50 mcg PO DAILY@0630 [facility] Last Admin: 07/31/18 06:11 Dose: 50 mcg Lidocaine (Lidoderm) 1 ea TD DAILY [facility] Last Admin: 07/31/18 08:35 Dose: 1 ea Metoprolol Tartrate (Lopressor) 25 mg PO Q12 [facility] Last Admin: 07/31/18 08:49 Dose: 25 mg Multivitamins/Minerals (Therapeutic-M Tab) 1 tab PO DAILY [facility] Last Admin: 07/31/18 08:36 Dose: 1 tab Mupirocin (Bactroban Ointment) 1 applic TOP BID [facility] Last Admin: 07/31/18 08:35 Dose: 1 applic Ondansetron HCl (Zofran Tab) 8 mg PO Q8 PRN PRN Reason: Nausea/Vomiting Pantoprazole Sodium (Protonix Ec Tab) 40 mg PO 0600 [facility] Last Admin: 07/31/18 06:11 Dose: 40 mg Prednisone (Prednisone Tab) 10 mg PO DAILY [facility] Last Admin: 07/31/18 08:37 Dose: 10 mg Ranolazine (Ranexa) 500 mg PO BID [facility] Last Admin: 07/31/18 08:36 Dose: 500 mg - Labs Labs: 07/30/18 09:07 07/30/18 09:07 - Constitutional Appears: Well - Head Exam Head Exam: ATRAUMATIC, NORMAL INSPECTION, NORMOCEPHALIC - Eye Exam Eye Exam: EOMI, Normal appearance, PERRL Pupil Exam: NORMAL ACCOMODATION - ENT Exam ENT Exam: Mucous Membranes Moist, Normal Exam - Neck Exam Neck Exam: Full ROM, Normal Inspection - Respiratory Exam Respiratory Exam: NORMAL BREATHING PATTERN - Cardiovascular Exam Cardiovascular Exam: REGULAR RHYTHM - GI/Abdominal Exam GI & Abdominal Exam: Soft, Normal Bowel Sounds - Rectal Exam Rectal Exam: NORMAL INSPECTION - Exam External exam: NORMAL EXTERNAL EXAM - Extremities Exam Extremities Exam: Full ROM, Normal Capillary Refill, Normal Inspection - Back Exam Back Exam: NORMAL INSPECTION - Neurological Exam Neurological Exam: Alert, Awake Neuro motor strength exam: Left Upper Extremity: 3, Right Upper Extremity: 3, Left Lower Extremity: 3, Right Lower Extremity: 3 - Psychiatric Exam Psychiatric exam: Normal Affect - Skin Skin Exam: Dry Assessment and Plan (1) CVA (cerebral vascular accident) Assessment & Plan: plan for physical,occupational rec therapy Status: Acute
--- NOTE | 2018-07-31 23:52 | CP.PCM.DIS ---
Provider - Provider Date of Admission: 07/18/18 19:51 Attending physician: Preethi Cabral MD Consults: 07/18/18 23:27 Physiatry Consult Routine Comment: Consulting Provider: Bashir Valadez Consulting Physician: Bashir Valadez Reason for Consult: Acute Rehab. Dx. Acute CVA 07/19/18 03:22 Pharmacist Consult As Ordered Comment: Physician Instructions: Reason For Exam: Patient on Heparin. With medication more than 10. 07/19/18 08:00 Case Management Referral Routine Comment: Physician Instructions: Reason For Exam: Reason for Referral: Discharge Planning Time Spent in preparation of Discharge (in minutes): 25 Diagnosis - Discharge Diagnosis (1) Pericardial effusion with cardiac tamponade Status: Acute Priority: High Comment: S/P Window (2) CVA (cerebral vascular accident) Status: Acute Priority: Medium (3) Hyperlipidemia Status: Chronic Priority: High (4) Hypertension Status: Chronic Priority: Low (5) Pancreatitis Status: Acute Priority: Medium (6) SLE (systemic lupus erythematosus) Status: Acute Priority: Low (7) Constipation Status: Acute (8) Fibromyalgia Status: Chronic Priority: Low Hospital Course - Lab Results Lab Results: Micro Results 07/25/18 18:55 Urine,Clean Catch Urine Culture - Final 10-50,000 CFU/ML. MULTIPLE SPECIES. PROBABLE CONTAMINATION. Most Recent Lab Values WBC 5.0 K/uL (4.8-10.8) 07/30/18 09:07 RBC 3.89 Mil/uL (3.80-5.20) 07/30/18 09:07 Hgb 11.5 g/dL (12.0-16.0) L 07/30/18 09:07 Hct 34.5 % (34.0-47.0) 07/30/18 09:07 MCV 88.7 fl (81.0-99.0) 07/30/18 09:07 MCH 29.5 pg (27.0-31.0) 07/30/18 09:07 MCHC 33.2 g/dL (33.0-37.0) 07/30/18 09:07 RDW 14.2 % (11.5-14.5) 07/30/18 09:07 Plt Count 477 K/uL (130-400) H 07/30/18 09:07 MPV 8.0 fl (7.2-11.7) 07/27/18 05:40 Neut % (Auto) 37.3 % (50.0-75.0) L 07/27/18 05:40 Lymph % (Auto) 49.4 % (20.0-40.0) H 07/27/18 05:40 Whitley % (Auto) 10.4 % (0.0-10.0) H 07/27/18 05:40 Eos % (Auto) 2.0 % (0.0-4.0) 07/27/18 05:40 Baso % (Auto) 0.9 % (0.0-2.0) 07/27/18 05:40 Neut # (Auto) 1.6 K/uL (1.8-7.0) L 07/27/18 05:40 Lymph # (Auto) 2.1 K/uL (1.0-4.3) 07/27/18 05:40 Whitley # (Auto) 0.4 K/uL (0.0-0.8) 07/27/18 05:40 Eos # (Auto) 0.1 K/uL (0.0-0.7) 07/27/18 05:40 Baso # (Auto) 0.0 K/uL (0.0-0.2) 07/27/18 05:40 Sodium 134 mmol/l (132-148) 07/30/18 09:07 Potassium 4.3 MMOL/L (3.6-5.0) 07/30/18 09:07 Chloride 96 mmol/L (98-107) L 07/30/18 09:07 Carbon Dioxide 23 mmol/L (22-30) 07/30/18 09:07 Anion Gap 19 (10-20) 07/30/18 09:07 BUN 11 mg/dl (7-17) 07/30/18 09:07 Creatinine 0.8 mg/dl (0.7-1.2) 07/30/18 09:07 Est GFR ( Amer) > 60 07/30/18 09:07 Est GFR (Non-Af Amer) > 60 07/30/18 09:07 POC Glucose (mg/dL) 80 mg/dL (65-110) 02/19/19 06:16 Random Glucose 86 mg/dL (65-105) 07/30/18 09:07 Calcium 9.6 mg/dL (8.4-10.2) 07/30/18 09:07 Discharge Exam - Head Exam Head Exam: ATRAUMATIC, NORMAL INSPECTION, NORMOCEPHALIC Discharge Plan - Discharge Medications Prescriptions: Ibandronate Sodium [Boniva] 150 mg PO Q30D #1 tablet Lactulose [Constulose] 10 gm PO DAILY PRN #14 solution PRN Reason: Constipation Raloxifene [Evista] 60 mg PO DAILY #30 tab Lidocaine 5% [Lidoderm] 1 ea TD DAILY #10 patch Atorvastatin [Lipitor] 20 mg PO HS #30 tab Metoprolol Tartrate [Lopressor] 25 mg PO Q12 #60 tab Gabapentin [Neurontin] 300 mg PO TID #30 cap Hydroxychloroquine Sulfate [Plaquenil] 200 mg PO DAILY #30 tablet predniSONE [predniSONE Tab] 10 mg PO DAILY #30 tab Pantoprazole Sodium [Protonix] 40 mg PO DAILY #30 tablet. Ranolazine [Ranexa] 500 mg PO BID #60 ter Levothyroxine [Synthroid] 50 mcg PO DAILY #30 tab - Follow Up Plan Condition: GOOD Disposition: HOME/ ROUTINE Instructions: High Blood Pressure in Adults, Stroke (DC), High Cholesterol (DC) Additional Instructions: Follow-Up with: 1. Dr. Joey Segura (Cardio-Thoracic) [phone] [place] [id number] Monday, Aug 01, 2018 at 10:30 AM. 2. Ej (Ophthalmology) [phone] [place] [id number] Monday, Aug 06, 2018 at 2:20 PM.
== END 2018-07-31 15:15 | disposition home or self-care (01) | DRG 56 ==
PROVIDERS: ADMIT Internal Medicine; ATTEND Internal Medicine
PROC: F08Z4FZ Home Management Treatment using Assistive, Adaptive, Supportive or Protective Equipment (ICD-10-PCS; principal; 2018-07-19)
PROC: F07M6FZ Therapeutic Exercise Treatment of Musculoskeletal System - Whole Body using Assistive, Adaptive, Supportive or Protective Equipment (ICD-10-PCS; 2018-07-19)
PROC: F06Z1ZZ Speech-Language Pathology and Related Disorders Counseling Treatment (ICD-10-PCS; 2018-07-19)
DX: I69.359 Hemiplegia and hemiparesis following cerebral infarction affecting unspecified side (principal); K85.90 Acute pancreatitis without necrosis or infection, unspecified; I31.4 Cardiac tamponade; J90 Pleural effusion, not elsewhere classified; I31.3 Pericardial effusion (noninflammatory); I69.392 Facial weakness following cerebral infarction; I69.322 Dysarthria following cerebral infarction; K59.00 Constipation, unspecified; R26.9 Unspecified abnormalities of gait and mobility; R27.8 Other lack of coordination; M32.9 Systemic lupus erythematosus, unspecified; M79.7 Fibromyalgia; Z79.899 Other long term (current) drug therapy; Z86.711 Personal history of pulmonary embolism; Z98.42 Cataract extraction status, left eye; Z98.41 Cataract extraction status, right eye; Z96.1 Presence of intraocular lens; M19.90 Unspecified osteoarthritis, unspecified site; E03.9 Hypothyroidism, unspecified; E78.00 Pure hypercholesterolemia, unspecified; E78.5 Hyperlipidemia, unspecified; I10 Essential (primary) hypertension; I25.10 Atherosclerotic heart disease of native coronary artery without angina pectoris; J45.909 Unspecified asthma, uncomplicated; K21.9 Gastro-esophageal reflux disease without esophagitis; M06.4 Inflammatory polyarthropathy; Z88.2 Allergy status to sulfonamides